=== PATIENT | female | born 2000 | race Caucasian/White ===

== ENCOUNTER → 2022-01-30 | Outpatient (CLI) | payer OTHER, SELFPAY ==
--- NOTE | 2022-01-30 12:19 | US_ITS ---
STUDY: ULTRASOUND BREAST - RIGHT REASON FOR EXAM: Female, 21 years old. Bilateral palpable breast lump. TECHNIQUE: Axial and longitudinal images of the RIGHT breast were performed with a high resolution ultrasound transducer. # OF IMAGES: 28 COMPARISON: None. FINDINGS: RIGHT Breast: There is a 2.3 cm x 2.1 cm x 1.4 cm well-defined hypoechoic solid nodule at the 4 o''clock position of the breast at 2 cm from the nipple. Increased flow is seen. This most likely represents a fibroadenoma although tissue diagnosis is recommended. IMPRESSION: The palpable abnormality corresponds to a 2.3 cm x 2.1 cm x 1.4 cm well-defined hypoechoic nodule at the 4 o''clock position of the breast at 2 cm from nipple. Biopsy recommended. ASSESSMENT CATEGORY: BIRADS Category 4: Suspicious - Biopsy Should Be Considered. A letter regarding these results will be sent to the patient by the facility within 30 days. Electronically Signed: Manish Kay MD at 15:04 EST Reading Location ID and State: [address] [place] [address] , Service support , STUDY: ULTRASOUND BREAST - LEFT REASON FOR EXAM: Female, 21 years old. Palpable lump left breast. TECHNIQUE: Axial and longitudinal images of the LEFT breast were performed with a high resolution ultrasound transducer. # OF IMAGES: 28 COMPARISON: None. FINDINGS: LEFT Breast: The palpable lump corresponds to a 2.1 cm x 2.1 cm x 1.1 cm well-defined hypoechoic nodule at the 4 o''clock position of the breast at 1 cm from the nipple. Adjacent to this, a similar appearing nodule measuring 1 cm x 0.8 x 0.8 cm is seen. Biopsy recommended. US/Breast Limited Unilateral IMPRESSION: 2 adjacent well-defined hypoechoic solid nodules at the 4 o''clock position of the breast at 1 cm from nipple. Biopsy is recommended. ASSESSMENT CATEGORY: BIRADS Category 4: Suspicious - Biopsy Should Be Considered. A letter regarding these results will be sent to the patient by the facility within 30 days. Electronically Signed: Manish Kay MD at 15:05 EST ,
== END | disposition home or self-care (01) ==
LOC: OPUS 12:15
PROVIDERS: PCP Physician Assistant
DX: N63.0 Unspecified lump in unspecified breast (principal)
CPT/HCPCS: 76642

== ENCOUNTER → 2022-02-07 | Outpatient (CLI) | payer OTHER, SELFPAY ==
--- NOTE | 2022-02-07 10:15 | BRBX_PTH ---
PATIENT: BRIAN REID LOC: [facility] U#:[id number] AGE/SX: 21/F ROOM: RE02/07/[address]: Dr. Cinthia Ruiz MD : 2000 BED: DIS: 02/07/2022 SPEC #: [id number] RECD: 02/07/22 11:08 STATUS: BRANDEN REReanna #: [id number] DEVONTE: 02/07/22 10:[address]: Cinthia Ruiz DEPT: SURGICAL PATHOLOGY RECD BY: Rosalinda Ferrara ENTERED: 02/07/22 11:35 SP TYPE: BREAST BX OTHR DR: BARB Timmons Tissues: A - Right breast, NOS B - Left breast, NOS Procedures: Surgery Specimen Level IV HEADER OPERATION: Needle core biopsy left and right breast lumps PRE-OP DIAGNOSIS: Likely fibroadenoma TISSUE SUBMITTED: A ? Right breast 4 o?clock, 2 cm from nipple tissue, B ? Left breast 4 o?clock, 1 cm from nipple tissue MICROSCOPIC DIAGNOSIS A. Right breast, 4 o?clock, 2 cm from nipple, core biopsy: Fibroadenoma. Negative for atypia or malignancy. B. Left breast, 4 o?clock, 1 cm from nipple, core biopsy: Fibroadenoma. Negative for atypia or malignancy. AROLDO:sher 02/08/2022 MICROSCOPIC DESCRIPTION Slides are reviewed. GROSS DESCRIPTION A - Received in fixative is one container labeled with the patient's name and designated right breast 4 o?clock, 2 cm from nipple tissue. The specimen consists of multiple elongated fragments of arreola-yellow fibroadipose tissue that in aggregate measure 1 x 0.5 x 0.1 cm. The entire specimen is submitted in one cassette. B - Received in fixative is one container labeled with the patient's name and designated left breast 4 o?clock, 1 cm from nipple tissue. The specimen consists of multiple elongated fragments of arreola-yellow fibroadipose tissue that in aggregate measure 1 x 0.5 x 0.1 cm. The entire specimen is submitted in one cassette. / AROLDO:sher 02/07/2022 TC:1 CPT: 58411 x2
== END | disposition home or self-care (01) ==
PROVIDERS: PCP Physician Assistant; Referring Provider Surgery; Visit Provider Surgery
DX: D24.1 Benign neoplasm of right breast (principal); D24.2 Benign neoplasm of left breast
CPT/HCPCS: 88305

== ENCOUNTER 2024-03-27 08:48 | Day surgery (SDC) | payer OTHER, SELFPAY ==
[2024-03-27] VITALS (9 sets, daily range): BP systolic 103–119; BP diastolic 58–82; PULSE 60–86; RESP 16; TEMP 36.3–36.4; O2SAT 94–100; BMI 21.6
[2024-03-27] MEDS: 0.9% Normal Saline (1000mL) 1,000 ML 15 ML IV (09:28)
[2024-03-27 09:39] LABS: Internal QC Validated? YES +Cl - CLEAR BKGD; Pregnancy, Urine Negative Negative; Record Kit Lot#,Urine Preg 855059
--- NOTE | 2024-03-27 10:05 | HP.PCM_ITS ---
History and Physical Date of Admission: 03/27/24 Date of Service: 03/17/24 MR#: [id number] Acct: [id number] Name: BRIAN REID Rep #: [id number] : 2000 Provider: Dr. Cinthia Ruiz MD Age/Sex: 23/F Location: [facility] Status: Signed Intake Vital Signs 01/08/2317:25 03/17/2510:19 Height 5 ft 6 in 5 ft 6 in Weight: 134 lb 4 oz BMI 21.7 BP 125/80 H Blood Pressure Location Lt brachial Position Sitting Respiration 18 Pulse 68 Pulse Source Monitor Temp 97.2 F L Temp Source Temporal Pulse Oximetry (%) 98 Oxygen Delivery Method room air Intake Visit Reasons: EXCISION OF R BREAST MASS Chief Complaint: excision of r breast mass Accompanied by: Mother Is patient in pain?: No Allergies sulfamethoxazole (From Bactrim) Allergy (Verified 03/17/24 11:22) Hivestrimethoprim (From Bactrim) Allergy (Verified 03/17/24 11:22) Hives Medications ?Medication ?Instructions ?Recorded ?Confirmed ?Type NK 03/17/24 03/17/24 History PFSH Medical History (Updated 03/17/24 @ 11:[address] Cinthia Ruiz MD) Lump of right breast Acute streptococcal pharyngitis Acute pharyngitis, unspecified Acute frontal sinusitis, unspecified Surgical History S/P laparoscopic cholecystectomy Family History Grandfather Diabetes Heart disease Hypertension Cancer skin Kidney diseaseGrandmother Heart diseaseMother CAD (coronary artery disease)Aunt Cancer uterine Social History (Updated 03/17/24 @ 11:18 by Ann Marie Jarrett LPN) Smoking Status: Never smoker alcohol intake: never substance use type: does not use HPI HPI HPI: 23-year-old female presents due to enlarging right breast fibroadenoma. Patient had this biopsied in January 2022 along with the left breast which was both fibroadenomas. However the right breast has grown in size about 3x the size previous. Patient states about the size of a golf ball. This can cause discomfort if her breast from work is pressing on this area. ROS General General: No weight change, appetite, fatigue, colon cancer, breast cancer or weakness HEENT HEENT: No difficulty swallowing, eye injury, eye surgery, swollen glands or hoarseness Endo Endocrine: No thyroid disease, diabetes mellitus, thyroid cancer, Hair loss, heat intolerance or cold intolerance Skin Skin: No rash or changing moles Breast Breast: Yes right breast lump; No left breast lump, nipple discharge, breast pain, abnormal mammogram, abnormal US or breast enlargement Musc Musculoskeletal: No back problems, arthritis, rheumatoid arthritis, gout or joint pain Cardio Cardiovascular: No murmur, pacemaker, heart disease, atrial fibrillation, high blood pressure, heart attack, heart stent, palpitations, shortness of breat with exertion or chest pain Psych Psychiatric: No depression, anxiety or hearing voices Resp Respiratory: No shortness of breath, No sleep apnea, No cough, No COPD, No asthma, No emphysema and No wheezing Gastro Gastrointestinal: No abdominal pain, No nausea or vomiting, No diarrhea, No constipation, No blood in stool, No acid reflux, No hemorrhoids, No ulcers, No gallbladder problem and No black,tarry stools Albert Hematologic: No blood thinners, No blood disorders, No bleeding, No anemia and No blood clots Neuro Neurologic: No numbness, No tingling and No weakness Exam Const General: cooperative, healthy appearing and no acute distress [facility] Head: normal to inspection Chest Other: Breast inspection: Symmetric bilaterally, can faintly see right breast enlarging mass at 4:00 when laying down Right breast: Fibroglandular tissue, 8 cm x 7 cm mass at 4:00 previously biopsied and was a fibroadenoma question whether this is a phyllodes with the growth, no nipple discharge or pain, no change in overlying skin Left breast: Fibroglandular tissue, 2 x 2.5 cm mass at 4:00 2 cm previously biopsied as well?fibroadenoma, no nipple discharge or pain, no change in overlying skin No axillary or supraclavicular adenopathy bilaterally Resp Effort & Inspection: normal respiratory effort Cardio Rate: regular rate GI Inspection: non-distended Palpation: soft Skin General: no rashes or lesions noted Neuro General: patient oriented x3 Extrem General: no clubbing, cyanosis or edema Psych Affect: normal affect Assessment and Plan Assessment and Plan (1) Lump of right breast: Status: Acute Comment: Biopsy in 2021 fibroadenoma but has grown in size Plan Plan for excisional breast biopsy of the right breast at 4:00. Discussed risk including but not limited to bleeding, infection, and need for further surgery and anesthesia. Patient no further question this time. Cinthia Ruiz M.D. Pager: [phone] [facility] [address] [place] [address], [facility], [address] [place] [id number] Office: [phone] Coding Level of Care Code Off vis,est,level 3 Diagnoses Lump of right breast N63.10 03/17/24 1142 <Electronically signed by Cinthia Ruiz MD> Date Cinthia Ruiz MD
--- NOTE | 2024-03-27 10:26 | PRE.ANES_ITS ---
ASA Classification* ASA Classification ASA Classification: 1 Assessment & Plan Anesthesia* Anesthesia Assessment Anesthesia Assessment: Discussed sedation and/or anesthesia options, risks, benefits, and alternatives with patient/parents/legal guardian/POA. Questions invited. The patient/parents/legal guardian/POA seems to understand and agrees to proceed with anesthesia plan. Reviewed the physical assessment, medical history, allergy history and patient home medications list prior to surgery/procedure/anesthetic and documented any changes. Performed airway and anesthesia risk assessments. Anesthesia Type Anesthesia Type: General History Source History Obtained from:: Patient and Chart Anesthesia Focused Assessment* Temperature: 97.6 F Pulse Rate: 77 Blood Pressure: 103/70 Respiratory Rate: 16 Pulse Ox: 100 Oxygen Delivery Method: Room Air Airway Assessment Mouth opens: >3 cm Mallampati Score: I Teeth Condition: Intact Neck Range of motion (ROM): Full ROM Focused Labs Anesthesia Preop lab: CBC CHEMISTRY COAG Urine Test Negative Negative 03/27/24 09:20 03/27/24 Pre-Assessment Diagnosis/Proposed Procedure Planned Operative Procedure(s): EXCISION RIGHT FIBROADENOMA Anesthesia History Anesthesia History - box shook patcher: Anesthesia History - box shook patcher Hx Hospitalization No 03/19/24 11:00 Any Problems With Anesthesia No 03/19/24 11:00 Cholinesterase deficiency No 03/19/24 11:00 You/Your Family Experience No 03/19/24 11:00 fever (hyperthermia) with Relationship Recent Exposure to Contagious No 03/27/24 09:13 Disease Does patient have nerve No 03/19/24 11:00 stimulator Patient instructed to have device shut off --Does patient have Pacemaker No 03/27/24 09:16 or ICD? When Was Last Pacemaker Check QUESTION #4 FULL TEXT: You/Your Family Experience fever (hyperthermia) with Anesthesia Last Oral Intake Last Oral intake: Last Oral Intake NPO since 19:30 03/27/24 09:16 Meds taken in AM with sips of No 03/27/24 09:16 water? Meds patient instructed to take am of surgery PONV PONV - box shook patcher: PONV - box shook patcher Female Yes 03/19/24 11:00 HX of Motion Sickness No 03/19/24 11:00 HX of N/V After Surgery No 03/19/24 11:00 Non-Smoker Yes 03/19/24 11:00 Duration of Surgery greater No 03/19/24 11:00 than 60 minutes Number of Risk Factors 2 03/19/24 11:00 PONV Score Moderate Risk 03/19/24 11:00 Height & Weight Height & Weight: Anesthesia: Height & Weight Height 5 ft 6 in 03/27/24 09:16 Weight: 60.781 kg 03/27/24 09:16 Body Mass Index (BMI) 21.6 03/27/24 09:16 Respiratory Assessment Respiratory Assessment - box shook patcher: Respiratory Tract Infection Hx - box shook patcher Hx Respiratory Tract Infection No 03/19/24 11:00 STOP Sleep Apnea STOP Sleep Apnea - box shook patcher: STOP Sleep Apnea - box shook patcher Hx Hypertension No 03/19/24 11:00 Hx Sleep Apnea No 03/19/24 11:00 CPAP BIPAP Do you snore loudly (louder No 03/19/24 11:00 than talking or can be heard Do you often feel tired/ No 03/19/24 11:00 fatigued/ sleepy during daytime? Has anyone observed you stop No 03/19/24 11:00 breathing during sleep? STOP Results Negative 03/19/24 11:00 QUESTION #5 FULL TEXT : Do you snore loudly (louder than talking or can be heard through closed doors)? 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 Specify any problems Hx of Preganancy in last 3 No 03/19/24 11:00 Months Nurse Filling Out Transfusion DSCHRIBER 03/19/24 11:00 & Questions: Date: 03/19/24 03/19/24 11:00 Time: 11:03/19/24 11:00 Patient unable to answer at this time (ie. confused, unrespo /Reproduction History /Reproductive History - box shook patcher: /Reproductive Hx- box shook patcher Hx Now No 03/19/24 11:00 Gestational Age (in weeks): EDC: Hx Hx Para Hx Section SAB No 03/19/24 11:00 Active Medications Active Medications: Current Medications Generic Name Dose Route Start Last Admin Trade Name Freq PRN Reason Stop Dose Admin Cefazolin Sodium 2 gm/ N/A 20 mls @ 400 mls/hr 03/27/24 10:30 IV 03/27/24 10:32 PREOP ONE Sodium Chloride 1,000 mls @ 15 mls/hr 03/27/24 09:05 03/27/24 09:28 IV 04/01/24 22:24 15 mls/hr .Q48H TIAN Administration Protocol [facility] Medical History Alcohol use Non-smoker Lump of right breast Acute streptococcal pharyngitis Acute pharyngitis, unspecified Acute frontal sinusitis, unspecified Home Medications ?Medication ?Instructions ?Recorded ?Last Taken ?Type NK 03/17/24 Unknown History Allergy/AdvReac Type Severity Reaction Status Date / Time sulfamethoxazole (From Allergy Hives Verified 03/27/24 09:11 Bactrim) trimethoprim (From Bactrim) Allergy Hives Verified 03/27/24 09:11 Family History Grandfather Diabetes Heart disease Hypertension Cancer skin Kidney disease Grandmother Heart disease Mother CAD (coronary artery disease) Aunt Cancer uterine Surgical History Hx of wisdom tooth extraction S/P laparoscopic cholecystectomy Social History Smoking Status: Never smoker alcohol intake: never substance use type: does not use Review of Systems (Anesthesia) ROS Narrative System reviewed and no additional complaints, except as documented.
--- NOTE | 2024-03-27 10:30 | BRBX_PTH ---
PATIENT: BRIAN REID LOC: [facility] U#:[id number] AGE/SX: 23/F ROOM: RE03/27/[address]: Dr. Cinthia Ruiz MD : 2000 BED: DIS: 03/27/2024 SPEC #: [id number] RECD: 03/27/24 11:45 STATUS: BRANDEN REReanna #: [id number] DEVONTE: 03/27/24 10:[address]: Cinthia Ruiz DEPT: SURGICAL PATHOLOGY RECD BY: Rosalinda Ferrara ENTERED: 03/27/24 11:52 SP TYPE: BREAST BX OTHR DR: BARB Timmons Tissues: Right breast, NOS Procedures: Surgery Specimen Level IV HEADER OPERATION: Excision, right fibroadenoma breast PRE-OP DIAGNOSIS: Lump of right breast TISSUE SUBMITTED: Fibroadenoma right breast *short tag- anterior, long tag- medial* MICROSCOPIC DIAGNOSIS Right breast lesion, excisional biopsy: Juvenile fibroadenoma of breast. See comment. 04/07/2024 COMMENT The lesion appears to be completely excised. The specimen is sent to [facility] for expert opinion, reviewed by Dr. Michaud and the above diagnosis is rendered. The complete report is viewable in the patient's EMR. Please make reference to previous specimen [id number] right breast, 4oc'clock, 2cm from nipple, core biopsy with diagnosis of fibroadenoma and left breast, 4o'clock, 1cm from nipple, core biopsy with diagnosis of fibroadenoma. Clinical correlation and appropriate follow up are necessary. This case has been reviewed in consultation with Dr. Bautista who concurs with the above diagnosis. IDC:PW MICROSCOPIC DESCRIPTION Slides are reviewed. GROSS DESCRIPTION Received in fixative is one container labeled with the patient's name and designated Fibroadenoma right breast. The specimen consists of a arreola nodular piece of tissue without needle localization weighing 49gm and measuring 6 x 5 x 4.5cm. The specimen is oriented as follows: short- anterior, long -medial. The specimen is inked as follows: anterior - yellow, posterior - black, superior - blue, inferior - green, medial - red and lateral - orange. Sections reveal that entire specimen is replaced by a arreola solid nodule. Area of hemorrhage, necrosis or cystic degeneration are not identified. Cartographic Designer sections are submitted in eight cassettes as follows: 1- perpendicular medial and lateral margins, 2-8- tumor, nodular mass including other margins. 03/28/2024 TC:1 CPT:45755
[2024-03-27] MEDS: Cefazolin 2 GM in Syringe IV (11:00)
--- NOTE | 2024-03-27 11:05 | BI_ITS ---
EXAM: BREAST BIOPSY SPECIMEN CLINICAL HISTORY: Breast mass. COMPARISON: None. TECHNIQUE: Imaging of the specimen was obtained. FINDINGS: The specimen contains the mass. BI/Breast Biopsy Specimen IMPRESSION: The specimen contains the mass. Reading Location: [place] [address]
[2024-03-27] MEDS: Bupivacaine 0.25% 30 ML Vial (11:33)
--- NOTE | 2024-03-27 11:41 | OP.PCM_ITS ---
Operative Report (Standard) Operative Information Date of Procedure: 03/27/24 Pre-Operative Diagnosis: Right breast fibroadenoma Post-Operative Diagnosis: Same Surgery/Procedure Performed: Excisional right breast fibroadenoma marketing support coordinator: Yes Ux Information Architect: Magali Ramirez Tasks completed by payroll assistant: Opening & closing and Retracting Type of Anesthesia: General/Supplemental RN Documented Start/Stop Times: Operation Date: 03/27/24 10:30 Case Time Into Pre-Op 03/27/24 09:02 Out of Pre-Op 03/27/24 10:50 Anesthesia Start 03/27/24 10:52 Into Room 03/27/24 10:52 Procedure Start 03/27/24 11:05 Procedure End 03/27/24 11:47 Anesthesia End 03/27/24 11:56 Out of Room 03/27/24 11:56 Into Recovery 03/27/24 12:00 Into Phase II Recovery 03/27/24 12:37 Out of Recovery 03/27/24 12:37 Procedure Start Time: 11:05 Procedure Stop Time: 11:47 Select all DRAINS/GRAFTS/IMPLANTS that apply: None Special Medications: Ancef 2 g IV x 1 Estimated Blood Loss: < 10 CC Specimen collected: Yes Description of specimen(s) removed: Right breast mass?previous biopsy fibroadenoma Description of surgery: Indications?23-year-old female previous right breast biopsy for fibroadenoma however this has enlarged in size about 3 times the previous size since previous biopsy. Patient was brought to operating placed spine operating table. Timeout was completed verifying correct patient, procedure, site, positioning, special, prior began procedure. General anesthesia was induced. Patient's right breast was prepped draped in a sterile fashion. A areolar border incision was planned in such a way as to minimize the amount of dissection to reach the mass. Flaps were raised in the location of the mass. 2 silk [id number] stay suture was placed on the breast mass and used for traction. Dissection was then taken down circumferentially with electrocautery, taking care to include the entire breast mass. The specimen was removed. The specimen was oriented and sent to radiology. Confirmation was received that the entire target lesion had been resected along with previously placed clip. The cavity was irrigated. Hemostasis was obtained with electrocautery. The breast incision was closed with interrupted sutures of 3-0 Vicryl and subcuticular sutures of 4-0 Monocryl and Dermabond. No attempt was made to close the space. A dressing of fluff gauze and supportive bra placed. The patient tolerated procedure well was taken to the postanesthesia care in stable condition. Surgical Findings: Please see operative report Complications Complications: No
--- NOTE | 2024-03-27 11:45 | EX.PCM.DISCH ---
Discharge Instructions Diet Discharge Diet: No restrictions Activity Discharge Activity: May Not Drive (while taking narcotic pain meds.) and May Shower (In 24 hours) May shower in (days): 1 Lifting Restrictions: 20 pounds for 1 week on the right. Additional Activity Instructions:: Wear good compression bra even at night for the first couple nights Dressing / Incision Call your doctor if your incision/area has: Continuous Slow Oozing, Sudden Increased Bleeding, Increased Pain/ Swelling and Increased Redness Call your doctor if you observe: Fever of 101 or Higher Suture Line Care: Avoid Pulling/Pushing and Avoid Pinching/Bending Remove Dressing in: 1 day Additional Dressing/Incision Instructions:: Remove bulky dressing tomorrow. Dermabond (glue) was used at the incision this may start to peel off in about 5 days. Follow Up Care Please Follow Up With: Cinthia Ruiz MD When: Please call [phone] for an appointment to be seen in 2 week. Test Results: Test results from this visit will be discussed in further detail at your follow-up appointment, if applicable. Discharge Plan Admission Attending Provider: Cinthia Ruiz Primary Care Provider: Kristin Nguyen Instructions Print Language: Turkish Discharge Orders/Prescriptions Prescriptions: New tramadol 50 mg tablet 50 mg PO Q6H PRN (Reason: pain) Qty: 3 0RF Referrals / Follow Up: Kristin Nguyen PA [Primary Care Provider] - Disposition Disposition (needs filled in before D/C Order can be placed): Home, Self Care
--- NOTE | 2024-03-27 12:02 | PCM.POST.ANE ---
Anesthesia: Postop Eval I Current Vital Signs Temperature: 97.3 F Pulse Rate: 86 Blood Pressure: 113/82 Respiratory Rate: 16 Pulse Ox: 100 Oxygen Delivery Method: Room Air Assessment Airway patent: Yes Spontaneous unlabored respirations: Yes Mental status: Awake and Calm nausea: No Vomiting: No Anesthesia Complication: No Fluid Hydration Crystalloid volume administer (ml): 700 Total IV fluid infused: 700 Progress Note Anesthesia document: Postop Eval 1 completed: Yes
[2024-03-27] MEDS: Ketorolac 30 MG/ML Syringe IV (12:32)
--- NOTE | 2024-03-27 13:45 | POSTOPAN2_ITS ---
Anesthesia Postop Eval I Sum Postop Eval Completion status Anesthesia document: Postop Eval 1 completed: Yes Anesthesia Postop Eval I Summary Anesthesia Postop Eval I Summary: Anesthesia Postop Eval I: Assessment Summary Airway patent Yes 03/27/24 12:02 COATER OPERATOR.SKOBY Spontaneous unlabored Yes 03/27/24 12:02 COATER OPERATOR.IAN respirations Mental status Awake,Calm 03/27/24 12:02 COATER OPERATOR.SKOBY nausea No 03/27/24 12:02 COATER OPERATOR.SKOBY Vomiting No 03/27/24 12:02 COATER OPERATOR.MALIKAOBHector Anesthesia Postop Eval I: Fluid Summary Crystalloid volume administer 700 03/27/24 12:02 COATER OPERATOR.SKOBY (ml) Colloids volume administered ( ml) Blood Product volume administered (ml) Total IV fluid infused 700 03/27/24 12:02 COATER OPERATOR.MALIKAOBHector Anesthesia Postop Eval I: Summary Notes Anesthesia Complication No 03/27/24 12:02 COATER OPERATOR.IAN Anesthesia Complication Comment: Post-operative progress note Anesthesia: Postop Eval II Evaluation Mental status: Awake and Calm Pain Level: 0 nausea: No Vomiting: No Complications Anesthesia Complication: No
--- NOTE | 2024-03-27 13:45 | PCM.POSTANE2 ---
Anesthesia Postop Eval I Sum Postop Eval Completion status Anesthesia document: Postop Eval 1 completed: Yes Anesthesia Postop Eval I Summary Anesthesia Postop Eval I Summary: Anesthesia Postop Eval I: Assessment Summary Airway patent Yes 03/27/24 12:02 [email or web address] Spontaneous unlabored Yes 03/27/24 12:02 [email or web address] respirations Mental status Awake,Calm 03/27/24 12:02 [email or web address] nausea No 03/27/24 12:02 [email or web address] Vomiting No 03/27/24 12:02 [employer].[email or web address] Anesthesia Postop Eval I: Fluid Summary Crystalloid volume administer 700 03/27/24 12:02 [email or web address] (ml) Colloids volume administered ( ml) Blood Product volume administered (ml) Total IV fluid infused 700 03/27/24 12:02 [employer].[email or web address] Anesthesia Postop Eval I: Summary Notes Anesthesia Complication No 03/27/24 12:02 [email or web address]IAN Anesthesia Complication Comment: Post-operative progress note Anesthesia: Postop Eval II Evaluation Mental status: Awake and Calm Pain Level: 0 nausea: No Vomiting: No Complications Anesthesia Complication: No
== END 2024-03-27 13:26 | disposition home or self-care (01) ==
LOC: SDC 08:51 → AC 08:53
PROVIDERS: Anesthesiology; PCP Physician Assistant; Referring Provider Surgery; Visit Provider Surgery
PROC: (CPT 19120; principal; 2024-03-27 10:15)
DX: D24.1 Benign neoplasm of right breast (principal)
CPT/HCPCS: 19120; 00400; 76098; 81025; 88305; A4648; J2405

== ENCOUNTER → 2024-08-27 | Outpatient (CLI) | payer OTHER, SELFPAY ==
--- NOTE | 2024-08-27 12:23 | RAD_ITS ---
PROCEDURE: L/S SPINE MIN 4 VIEWS 08/27/2024 REASON FOR EXAM: LOW BACK PAIN W/RADICULOPATHY TECHNIQUE: Four view lumbar spine series including bilateral oblique views COMPARISON: None. RAD/L/S Spine Min 4 Views IMPRESSION: Surgical clips are seen over the medial right abdomen. No evidence of spondylolysis or spondylolisthesis. Sacroiliac joints appear symmetric and within the normal range. No significant degenerative change or disc narrowing is noted. No fracture is seen. Negative examination. Reading Location: [place] [id number]
== END | disposition home or self-care (01) ==
LOC: RAD 12:17
PROVIDERS: PCP Physician Assistant; Referring Provider Physician Assistant; Visit Provider Physician Assistant
DX: M54.50 Low back pain, unspecified (principal)
CPT/HCPCS: 72110

== ENCOUNTER → 2024-09-16 | Outpatient (CLI) | payer OTHER, SELFPAY ==
--- NOTE | 2024-09-16 11:16 | MRI_ITS ---
PROCEDURE: SPINE LUMBAR (ROUTINE) 09/16/2024 REASON FOR EXAM: BACK PAIN RADICULOPATHY TECHNIQUE: SPINE LUMBAR (ROUTINE) COMPARISON: Lumbar spine radiographs 08/27/2024. FINDINGS: 5 [id number] lumbar-type vertebrae are preserved in height, with anatomic alignment. Straightening of the lumbar lordosis is likely positional in nature. Normal marrow signal. Small left paracentral disc extrusion at L5-S1, indenting the ventral thecal sac, with no significant spinal canal narrowing. Extrusion is in close proximity to the exiting left S1 nerve with no evidence of impingement. No significant neural foraminal narrowing on either side. No disc bulge, spinal canal or neural foraminal narrowing at the remaining levels. Conus medullaris is normal in signal and morphology, terminating at L1. Normal appearance of the cauda equina. Unremarkable paravertebral soft tissues. MRI/Spine Lumbar (Routine) IMPRESSION: Small left paracentral disc extrusion at L5-S1, with no significant spinal leonel l or neural foraminal narrowing. No evidence for cauda equina nerve root impingement. Reading Location: [id number]
== END | disposition home or self-care (01) ==
LOC: MRI 10:59
PROVIDERS: PCP Physician Assistant; Referring Provider Physician Assistant; Visit Provider Physician Assistant
DX: M51.27 Other intervertebral disc displacement, lumbosacral region (principal)
CPT/HCPCS: 72148

== ENCOUNTER 2024-10-03 09:00 | Outpatient (RCR) | payer OTHER, SELFPAY ==
--- NOTE | 2024-09-08 15:33 | HP.PTEVAL ---
Patient's Visit Information Visit Information Visit Information: BRIAN REID is a 23 year old F referred to Physical Therapy by BARB Timmons with a diagnosis of L sided lumbar radiculopathy. 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 Subjective Subjective: Pt. is here today for her initial evaluation with diagnosis of lumbar radiculopathy. Pt. reports having issues on and off for a few years. Pt. reports she will bend over or lift something and have an intense episode where she can barely stand up. This will last a few days then go away. Pt. reports she feels like it is happening more consistent. Pt. reports pain can go down both legs at times. pt. reports mornings are painful, better as she gets moving. sitting is worse than standing and walking. Pt. has tried some stretching but has not been helpful. 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 Pt. would like to get back to all work and recreational lifting without issues. Pain L side of lumbar spine: Pain Intensity (Out of 10): 2 Pain Intensity Range: 0 and 7 Objective Objective: POSTURE: Pt. has decent posture in stance. No marked lateral shift noted. PALPATION: Pt. has increased pain with spring testing at L4-S1. No marked SI joint pain. NEURO: normal sensation and DTR of BLEs. Pt. is able to rise on heels and toes without issues. ROM: LUMBAR SPINE: flexion min loss increase NW upon return, ext min/mod loss increase NW, SB nil loss NE bilat, rotation nil loss NE bilat. Pt. has normal HS length bilat. Pt. has normal hip flexor length bilat. MMT: Pt. has 5/5 strength in distal LEs. 5-/5 hip extensors and abductors bilat. Fair- core strength, fair- lumbar extensors. GAIT: normal without issues. Balance/Special Test Scores Oswestry Low Back Score: 13 Goals Goal 1:: LTG: Pt. to be I with HEP. Goal Time Frame: 4-6 Weeks Goal 2:: STG: Pt. to have full ROM lumbar spine without increase in symptoms. Goal Time Frame: 2-4 Weeks Goal 3:: STG: Pt. to no radicular symptoms in LLE. Goal Time Frame: 2 Weeks Goal 4:: LTG: Pt. to complete all work related activities without increase in symptoms. Goal Time Frame: 4-6 Weeks Goal 5:: LTG: pt. to have 5/5 B hip and core strength. Goal Time Frame: 4-6 Weeks Rehabilitation Potential Physical Therapy Diagnosis: Pt. has signs and symptoms consistent with L sided lumbar radiculopathy. Pt. has marked pain in AMs, with sitting and with all bending/lifting. She did have a + response with extension progression today. Mild increase in symptoms but centralization of symptoms as well. Pt. would benefit from PT to work on her lumbar ROM and core stability to reduce future injuries. Rehabilitation Potential: Excellent Anticipated Interventions Patient/Client Instruction: Educate patient on: Condition, Plan of Care, Risk Factors and Benefits of Fitness Program For the Purpose of:: To improve decision making, To facilitate caregiver knowledge, To improve self management, To prevent re-injury and To improve ability to perform tasks related to life management Therapeutic Exercise to Include: Strength training, Power training, Passive ROM, Active ROM, Dynamic Lumbar Stabilization and Leonard Exercises For the Purpose of:: To decrease pain, To increase ROM, To improve nutrient delivery to tissue, To increase oxygenation perfusion, To improve muscle performance and motor function, To improve ability to perform ADL's, To improve gait and locomotor functions, To improve health of tissue and To decrease soft tissue restriction IF ES: Yes Cryotherapy (ice pack, ice massage): Yes For the Purpose of:: To decrease pain, To increase ROM, To improve nutrient delivery to tissue, To increase oxygenation perfusion, To improve health of tissue, To decrease soft tissue restriction and To increase flexibility/ROM Text: Thank you for the opportunity to evaluate your patient. For Medicare and Medicare HMO plans, please review the plan of care and approve it. It will need to be FAXED BACK to us at [phone] for Medicare purposes. For Medicare only, by signing this I certify the plan of care. Please let me know if there are questions or concerns regarding this plan of care. Physician Signature: Date:
--- NOTE | 2024-10-03 09:29 | HP.PTDCSUM ---
Discharge Summary D/C summary: It has been my pleasure to treat BRIAN REID referred by BARB Timmons, with the diagnosis of L sided lumbar radiculopathy for a total of 5 visit(s). Discharge Date: 10/03/24 Please see the following information for a summary of their discharge status. Subjective Subjective: Pt. reports being ~50% better. She has not had a spasm since starting. Pt. did have an MRI, showing a small disc extrusion. Pt. reports having some L anterior leg pain. Pt. reports no leg weakness. Pain L side of lumbar spine: Pain Intensity (Out of 10): 2 Overall Improvement % Improvement: 50 Objective Objective/Function: ROM: LUMBAR SPINE flexion nil loss NE, ext min loss increase NW, SB min loss NE, rotation min loss NE. Pt. has slight tightness in B HS as well. MMT: No myotomal weakness noted. GAIT: Pt. has fairly normal gait pattern. Pt. does not have a marked lateral shift, posture is overall pretty good. Pt. does reports overall doing better, but still has a underlying pain that never really goes away. Goals Goal 1:: LTG: Pt. to be I with HEP. Goal Progress: Goal Met Goal 2:: STG: Pt. to have full ROM lumbar spine without increase in symptoms. Goal Progress: Progressing Goal 3:: STG: Pt. to no radicular symptoms in LLE. Goal Progress: Progressing Goal 4:: LTG: Pt. to complete all work related activities without increase in symptoms. Goal Progress: Progressing Goal 5:: LTG: pt. to have 5/5 B hip and core strength. Goal Progress: Goal Met Plan Plan: Pt. is overall doing better. She has a good idea of her exercises. She is going to go on vacation and do her exercises. If not improving she will look at possibly seeing a spinal specialist. D/C Information d/c sentence: If there are questions or concerns regarding this patient's physical therapy, please feel free to call me at [phone]. Thank you for the referral of this patient. Sincerely, Demario Ryder Sipos, DPT Balance/Gait/Functional tests Balance/Special Test Scores Oswestry Low Back Score: 9 Improvement % Improvement: 50
== END 2024-10-03 10:13 | disposition home or self-care (01) ==
LOC: PT 09:00
PROVIDERS: PCP Physician Assistant; Referring Provider Physician Assistant; Visit Provider Physician Assistant
DX: M54.50 Low back pain, unspecified (principal)
CPT/HCPCS: 97014; 97110; 97161; 97530; G0283

== ENCOUNTER → 2025-01-18 | Outpatient (CLI) | payer OTHER, SELFPAY ==
--- OUTSIDE RECORDS SUMMARY | 2025-01-19 14:57 | XMS RPT_ITS | CCD ---
Author Organization [facility] Care Team Providers Care Operations General Agent Name Role Phone BELÉN TUCKER Unavailable Unavailable KRISTIN NGUYEN Unavailable Unavailable ALLEN, JIMMY A Unavailable Unavailable BELÉN TUCKER Unavailable Unavailable BELÉN TUCKER Unavailable Unavailable ALLEN, JIMMY A Unavailable Unavailable NIKKI SANTIAGO Unavailable Unavailable ALLEN, JIMMY A Unavailable Unavailable YONY HOOK Unavailable Unavailable ALLEN, JIMMY A Unavailable Unavailable YONY HOOK Unavailable Unavailable YONY HOOK L Unavailable Unavailable BELÉN TUCKER Unavailable Unavailable ALLEN JIMMY A Unavailable Unavailable ALLEN, JIMMY A Unavailable Unavailable ALEXIA CHANDRA Unavailable Unavailable ALLEN, JIMMY A Unavailable Unavailable ALLEN, JIMMY A Unavailable Unavailable ALTON CHANDRAAHAM D Unavailable Unavailable ALTON CHANDRAAHAM D Unavailable Unavailable ALLEN, JIMMY A Unavailable Unavailable BARB Vera Primary Care Provider [phone] BARB [address] Cinthia Ruiz Attending Provider SILVIA FULTON PAC Attending Unavailable SILVIA FULTON PAC Primary Care Unavailable SILVIA FULTON PAC Admitting Unavailable KRISTIN NGUYEN Consulting Unavailable PROVIDER, UNKNOWN Consulting Unavailable Elisa Nguyen PA-Cissa J Unavailable Kristin Nguyen PA-C J Unavailable [facility], [place] Unavailable General Surgery Provider Unavailable Unavail able Sarahi Moreau LPN Unavailable Silvia Fulton PA-C Unavailable Jl Steele MD Unavailable Johana Gibbs LPN Unavailable Unavailable Trinh Rojas MA Unavailable Unavailable Jimmy Allen MD Unavailable Branden SHELBY, Aye Unavailable Unavailable Ariel DEPENDENCY CASE MANAGER, Shanita Unavailable Unavailable Andressa DEPENDENCY CASE MANAGER, Claudette Bruce Unavailable Unavailab shan Cornejo DEPENDENCY CASE MANAGER, Danii Burr Unavailable Unavailab shan Ulloa MA, Shanita Unavailable Unavailable Diana DEPENDENCY CASE MANAGER, Esmer Unavailable Unavailabl e Zaugg DEPENDENCY CASE MANAGER, Diana Unavailable Unavailable Unavailable Unavailable Val Gandhi Unavailable Unavailabl e Physical Therapy Provider Unavailable Unavai lable Nguyen PA, Kristin Primary Care Provider Nguyen PA, Kristin Attending Provider Nguyen PA, Kristin Referring Provider [phone] Robotham, Cinthia Attending Unavailable Robotham, Cinthia Referring Unavailable Nguyen PA, Kristin Primary Care Unavailable Nguyen PA, Kristin Primary Care Unavailable Nguyen PA, Kristin Referring Unavailable Nguyen PA, Kristin Attending Unavailable Nguyen PA, Kristin Primary Care Unavailable Nguyen PA, Kristin Referring Unavailable Nguyen PA, Kristin Attending Unavailable Nguyen PA, Kristin Primary Care Unavailable Nguyen PA, Kristin Referring Unavailable Nguyen PA, Kristin Attending Unavailable Robotham, Cinthia Attending Unavailable Nguyen PA, Kristin Referring Unavailable Nguyen PA, Kristin Primary Care Unavailable Nguyen PA, Kristin Referring Unavailable Robotham, Cinthia Attending Unavailable Nguyen PA, Kristin Primary Care Unavailable Robotham, Cinthia Attending Unavailable Robotham, Cinthia Consulting Unavailable Robotham, Cinthia Referring Unavailable Nguyen PA, Kristin Primary Care Unavailable Allergies Allergy Classification Reported Allergen(s) Allergy Type Date of Onset Reaction(s) Facility (3 sources) Sulfamethoxazole Drug Allergy 5 [facility] [place] (3 sources) Trimethoprim Drug Allergy 5 [facility] [place] (1 source) Sulfamethoxazole Drug Allergy 5 [facility] Repository (1 source) Trimethoprim Drug Allergy [address] [place] [address] Repository Medications Completed/Discontinued Medications Medication Drug Class(es) Dates Sig (Normalized) Sig (Original) amoxicillin 500 mg oral capsule (3 sources) Penicillin-class Antibacterial Start: 01-08-2023 End: 01-18-2023 take 1 capsule by mouth three times daily Amoxicillin 500 mg capsule Discontinued 500 mg PO THREE TIMES A DAY 30 10 0 January 08, 2023 1:00am January 17, 2023 1:00am January 18, 2023 1:04am azithromycin 500 mg oral tablet (10 sources) Macrolide Antimicrobial Start: 03-18-2019 End: 03-21-2019 take 1 tablet by mouth once daily Azithromycin 500 MG Oral Tablet ; 1 (one) Tablet daily for 3 days Quantity: 3 {Tablet} Refills: 0 Ordered: 18-Mar-2019 MD Jimmy Allen Start: 18-Mar-2019 End: 21-Mar-2019 Status: Inactive Ethinyl Estradiol / Levonorgestrel (10 sources) Progestin, Estrogen, Progestin-containi ng Intrauterine Device Start: 07-16-2019 End: 11-19-2019 take 1 tablet by mouth once daily Seasonique 0.15-0.03 &0.01 MG Oral Tablet ; 1 (one) Tablet tablet daily for 0 days Quantity: 11 {Package} Refills: 1 Ordered: 19-Nov-2019 MANISH Nguyen Start: 16-Jul-2019 End: 19-Nov-2019 Status: Inactive Ethinyl Estradiol / norgestimate (10 sources) Progestin, Estrogen Start: 11-19-2019 End: 01-10-2022 Sprintec 28 0.25-35 MG-MCG Oral Tablet ; 1 (one) Tablet as directed for 0 days Quantity: 1 {Package} Refills: 11 Ordered: 10-Jan-2022 HERON Rojas Start: 19-Nov-2019 End: 10-Jan-2022 Status: Inactive sulfamethoxazole 800 mg / trimethoprim 160 mg oral tablet (10 sources) Dihydrofolate Reductase Inhibitor Antibacterial, Sulfonamide Antimicrobial Start: 01-12-2023 End: 01-17-2023 sulfamethoxazole 800 mg-trimethoprim 160 mg tablet ; 1 (one) tablet two times daily for 5 days Quantity: 10 {Tablet} Refills: 0 Ordered: 12-Jan-2023 MANISH Fulton Start: 12-Jan-2023 End: 17-Jan-2023 Status: Inactive traMADol hydrochloride 50 mg oral tablet (3 sources) Opioid Agonist Start: 03-27-2024 End: 04-09-2024 take 1 tablet by mouth every six hours as needed for pain Tramadol 50 mg tablet Discontinued 50 mg PO EVERY 6 HOURS as needed for pain 3 0 March 27, 2024 1:00am April 09, 2024 3:09pm Problems Active Problems Problem Classification Problem Date Documented Date Episodic/Chronic Abdominal pain (20 sources) Left sided abdominal pain; Translations: [Unspecified abdominal pain] 08-01-2021 Episodic Acute bronchitis (10 sources) Acute bronchitis; Translations: [Acute bronchitis, unspecified] 03-18-2019 Episodic Biliary tract disease (20 sources) Poorly functioning gallbladder; Translations: [Other specified diseases of gallbladder] 01-12-2023 Episodic Menstrual disorders (20 sources) Menorrhagia; Translations: [Excessive and frequent menstruation with regular cycle] 01-12-2023 Chronic Nonmalignant breast conditions (20 sources) Breast lump; Translations: [Unspecified lump in the right breast, unspecified quadrant] Episodic Comment on above: likely fibroadenomas Biopsy in 2021 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 Other connective tissue disease (10 sources) Pain in axilla; Translations: [Pain in right upper arm] 01-02-2018 Episodic Other injuries and conditions due to external causes (3 sources) Unspecified injury of unspecified wrist, hand and finger(s), initial encounter; Translations: [Unspecified injury of unspecified wrist, hand and finger(s), initial encounter] Onset: 01-12-2023 Episodic Other injuries and conditions due to external causes (20 sources) Injury of finger; Translations: [Unspecified injury of unspecified wrist, hand and finger(s), initial encounter] 01-12-2023 Episodic Other injuries and conditions due to external causes (10 sources) Injury of head; Translations: [Unspecified injury of head, initial encounter] 12-10-2015 Episodic Other lower respiratory disease (10 sources) Pleuritic pain; Translations: [Pleurodynia] 11-13-2018 Episodic Other non-traumatic joint disorders (20 sources) Pain in right knee; Translations: [Pain in joint, lower leg] 03-18-2015 Episodic Other upper respiratory infections (19 sources) Sore throat symptom; Translations: [Acute pharyngitis, unspecified] 01-17-2022 Episodic Residual codes; unclassified (10 sources) Sensation of being cold; Translations: [Other general symptoms and signs] 08-01-2021 Episodic Residual codes; unclassified (10 sources) Finding of body mass index; Translations: [Body mass index (BMI) pediatric, 5th percentile to less than 85th percentile for age] 01-24-2017 Episodic Spondylosis; intervertebral disc disorders; other back problems (20 sources) Low back pain; Translations: [Lumbago] 08-27-2024 Episodic Unclassified (10 sources) Menstrual problems - The menstrual problems are characterized as irregular menses (sometimes she will have a period 2 times a month- when she was running cross country; when that was over it went back to normal. States she has painful cramps and blood clots.) and have been occurring for 1 year. The first day of the last menstrual period was : (LMP ended 2 days ago; lasted x 5 days). Currently : no. The symptoms have been associated with low back pain, but have not been associated with nausea or vomiting. Note for Menstrual problems: Will also get headaches and tired during her period. Has never been sexually active. When she had an US for her gallbladder the tech mentioned that her uterus was tipped backwards.Sometimes will go through a tampon once an hour.Mom with menstrual irregularities- is scheduled to have a hysterectomy. 07-16-2019 Unclassified (10 sources) Knee pain - The onset of the knee pain has been gradual and has been occurring in an intermittent pattern for months. The course has been increasing. The knee pain is moderate in both knees (R>L (left is more of a rare occasion that it bothers her; right is daily)). The knee pain is described as being located in the entire knee. The knee pain is aggravated by sports activities. The knee pain is relieved by rest. The symptoms have been associated with popping/crepitus. There were no previous diagnostic tests. There were no previous evaluations. There has been no previous physical therapy. There has been no previous surgeries. Note for Knee pain: Feels like there is a lot of pressure just below patella and behind the knee. Has used tylenol, ice, and brace without improvement. Has had swelling. No radiation. 03-05-2015 Unclassified (1 source) Low back pain, unspecified; Translations: [Low back pain, unspecified] Onset: 09-29-2024 Past or Other Problems Problem Classification Problem Date Documented Date Episodic/Chronic Other and unspecified benign neoplasm (1 source) Benign neoplasm of right breast; Translations: [Benign neoplasm of right breast] Onset: 04-18-2024 Episodic Unclassified (10 sources) Finger pain - The pain is located in the of the right middle finger. This occurred 3 week(s) ago at home (pt smashed it in car window. She reports that the skin broke at the time of the injury.). Symptoms include pain, swelling, finger bruising and discoloration, but do not include deformity or decreased range of motion. The patient describes the pain as sharp (when touched). The patient is right hand dominant. The patient describes the pain as moderate in severity. Symptoms are exacerbated by moving the finger and direct pressure, but are not exacerbated by allowing the hand to hang down. The patient is not currently being treated for this problem. Note for Finger pain: Patient reports that the swelling has increased in the last 1-2 weeks. She reports pus coming out of the top of the finger in the last 1-2 days, which did decrease her pain.She has been on amoxicillin of the last 4 days for a strep infection. She reports that these symptoms are improving. 01-12-2023 Unclassified (10 sources) Form completion physical - The patient feels well with no complaints, has good energy level and is sleeping well. There are no current symptoms. The patient exercises 3 - 4 times per week. The patient has an appropriate balanced diet and takes no supplemental vitamins or iron and sleeps on average 8 hours per night. Habits include caffeine use. Safety measures include appropriate use of safety belts. There are no behavioral problems. Note for Form completion physical: Needs form completed for [employer]. 05-17-2022 Unclassified (10 sources) Cold Symptoms - Symptoms include ear fullness, sore throat, dry cough (Slight), chills, general malaise (tiredness, denies any body aches) and headache, but do not include sneezing, nasal congestion, runny nose, ear pain, productive cough, wheezing or fever. The onset was sudden 3 day(s) ago. The symptoms occur frequently. The patient describes this as mild and worsening. Current treatment includes non-prescription cold medication. The patient has not been exposed to an individual with similar symptoms. 01-17-2022 Unclassified (10 sources) Well adult female - The patient feels well with no complaints, has good energy level and is sleeping well. The first day of the last menstrual period was : (12/28/2021). The patient is not using any method of contraception at this time. The patient has a balanced diet and takes supplemental vitamins. The patient exercises 3 - 4 times per week. The patient sleeps 7 hours per night. Note for Well adult female: Patient needs a form completed today to start school in the [employer].Patient has noted a lump in her left breast for the past two years and lump in her right breast for the past 2-3 months. She denies any pain or size changes associated with either lump. She has not noted any skin changes or nipple discharge. She reports family history of breast cancer in some aunts and cysts in her mother and sister. 01-10-2022 Unclassified (10 sources) Abdominal pain - The onset of the abdominal pain has been acute and has been occurring in an intermittent pattern for 2 days. The course has been constant (happening more today). The pain is described as a mild sharp pain. The pain is located in the right upper quadrant and left upper quadrant. The symptoms have no aggravating factors but are relieved by antacids (tums). Note for Abdominal pain: Feels like gas pain.Has been using TUMs, pepto.BMs have been regular - no improvement following BM.Used heating pad and tried carbonated drink without improvement.No heartburn.Bloated feeling - all upper.Hard to sleep because of it.Prior to the pain starting had a bagel and granola bar.Hasn't had much of an appetite for a few months; early satiety; feeling really cold. Initially thought was stress related. 08-01-2021 Unclassified (10 sources) discuss control - Pt started seasonique in June-said she has been spotting in between periods. Had last period 2 weeks ago (was earlier than expected; was like a normal period) and started bleeding again on Sunday (again like a normal menses with clots, heavy, and cramps). Cramps have not been as bad on the OCP as they were without. Takes med daily at the same time. 11-19-2019 Unclassified (10 sources) Well child visit #4 - 13 to 17 years - The child is here for a 16 to 17 year well-child visit. The primary caregiver is the mother and father. The primary caregiver has no significant help or support. Family status: coping adequately. There are no behavioral problems. The patient has a balanced diet. There are no eating difficulties. Meals/day: 3. The child sleeps 7 hours at night. Menstruation: regular periods (OPC for heavy periods). The child performs well in school and interacts well with peers. Note for Well child visit #4 - 13 to 17 years: Working at [employer]. 09-22-2019 Unclassified (10 sources) Cold Symptoms - Symptoms include nasal congestion, runny nose, sore throat, hoarseness, productive cough (cant sleep because of the cough), fever (fever lst week for 2 days 102), chills, general malaise, headache and facial pain, but do not include ear pain. The onset was gradual 1 week(s) ago. The symptoms occur constantly. The patient describes this as moderate in severity and worsening. Current treatment includes non-prescription cold medication. Risk factors do not include smoking. The patient has been exposed to an individual with similar symptoms (goes to school and they have been sick), but has not been exposed to an individual with a cough, an individual with an upper respiratory infection, an individual with strep or secondhand smoke. Patient denies history of seasonal allergies, recurrent sinusitis, recurrent strep pharyngitis, asthma, tonsillectomy or recurrent ear infections. 03-18-2019 Unclassified (10 sources) pain under her left rib - Patient is here with her mom with complaints of having pain under her left ribs since yesterday - woke up in the night with it. Gets worse when she breathes in/out or when she talks - feels like knife stabbing her. When sitting she said it is sharp. No diarrhea, constipation, dysuria, or fever. Sometimes when it hurts really bad she feels like she is going to throw up. 5 days into menses now; regular. Gallbladder is out. No trauma or exertional activity recently. No change in symptoms with food. Feels SOB but that is only because she is taking shallow breaths. Certain movements make it worse as does pressure. No recent cold symptoms or fever. 11-13-2018 Unclassified (10 sources) Well child visit #4 - 13 to 17 years - The child is here for a 16 to 17 year well-child visit. The primary caregiver is the mother and father. Family status: coping adequately. There are no behavioral problems. The patient has a balanced diet. There are no eating difficulties. Meals/day: 3. The child sleeps 7 hours at night. Menstruation: regular periods (LMP about 3 wks ago.). The child performs well in school, interacts well with peers and participates in extracurricular activities. Safety measures taken include appropriate use of safety belts, home smoke detectors, avoiding exposure to passive smoke, counseling regarding substance abuse, counseling regarding safe sex/HIV and counseling regarding control. Note for Well child visit #4 - 13 to 17 years: No concerns today. Will be doing cross country. Working at [employer]. 09-16-2018 Unclassified (10 sources) painful lump underarm - Patient is here complaining that she has multiple painful lumps under her right armpit (3) and then one in the left arm pit. Also noticed a rash on Sunday. Noticed it on 12/28/2017. Says rash looks like it is getting better and now lumps/pain are improving. Started out red and now is skin colored. Denies that she had an pustules, etc. 01-02-2018 Unclassified (10 sources) Well child visit #4 - 13 to 17 years - The child is here for a 15 to 16 year well-child visit. The primary caregiver is the mother and father. Help and support are being provided by the father. Family status: coping adequately. There are no behavioral problems. The patient has a balanced diet, is eating a variety of foods and is allowed to eat junk foods. There are no eating difficulties. Meals/day: 3. The child sleeps 7 hours at night. Menstruation: regular periods. The child performs well in school, interacts well with peers and participates in extracurricular activities. Safety measures taken include appropriate use of safety belts and home smoke detectors. 09-21-2017 Unclassified (10 sources) Abdominal pain - The onset of the abdominal pain has been gradual (Abd/pelvis CT 10/27/16 - moderate stool - she did increase her fiber without improvement in symptoms; intermittent; flares at times and then calms down; has flared up 2-3wks ago now again. It is on her right side and around to her back. She is nauseated. Milk makes her nauseous and has a funny taste and she was a milk drinker. She is having harder time running past 10 minutes. [place] food is worse. Periods are regular, no dysuria, vomiting or fever.). 01-24-2017 Unclassified (10 sources) Abdominal pain - The onset of the abdominal pain has been gradual and has been occurring in an intermittent (but at some point daily) pattern. The course has been recurrent. The pain is described as a moderate sharp pain. The pain is located in the left upper quadrant (is on left side below the ribs; states when she feels that area she can feel something move;t hurts her when she walks, runs, and after she eatsIf she sits it feels better. 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 Decreased appetite x 3-4 weeks - eating bothers it. Nausea. No heartburn. Running after she eats makes it worse.Thinks this has been going on for about a year - no previous evaluations.Episodes last for about 5-10 minutes.No history of injury.) and does not radiate. There has been no associated constipation, diarrhea, dysuria or heartburn. 11-01-2016 Unclassified (10 sources) Well child visit #4 - 13 to 17 years - The child is here for a 14 to 15 year well-child visit. The primary caregiver is the mother and father. Family status: coping adequately. There are no behavioral problems. The patient has a balanced diet. There are no eating difficulties. Meals/day: 3. The child sleeps 8 hours at night. Menstruation: regular periods (LMP 2 wks ago). The child performs well in school, interacts well with peers and participates in extracurricular activities. Safety measures taken include appropriate use of safety belts and home smoke detectors. Note for Well child visit #4 - 13 to 17 years: Will be doing cross country and band this year. 09-18-2016 Unclassified (10 sources) cuncussion ? - Patient is here complaining that she was hit on the top of her head yesterday by the metal harness for her band instrument. Large lump appeared in the area right away but it is much smaller now. Went to the office yesterday and did ice application. Went home due to headache and frontal pressure; took ibuprofen. [place] a little sick this morning when she woke up but went to school (had eaten breakfast). Had a headache at school that worsened with reading and she felt dizzy. Continues with a little dizziness and pressure. No recent cold symptoms. No history of headaches. Hasn't taken any medication today. Little nausea but no vomiting. Lights and noise make the headache worse. Has a [employer] meet tomorrow. 12-10-2015 Unclassified (10 sources) Well child visit #4 - 13 to 17 years - The child is here for a 13 to 14 year well-child (Pt here today accompanied by mom for well child/sports physical. She will be going into 8th grade this Fall and be participating in [employer] in [place]. Needs Menactra Vaccine today.) visit. The primary caregiver is the mother and father. There are no behavioral problems. The patient has a balanced diet and is eating a variety of foods. There are no eating difficulties. Meals/day: 3 (plus snacks.). The child sleeps 7 hours at night. Menstruation: regular periods, menstrual discomforts and able to maintain daily schedule. The child performs well in school, interacts well with peers and participates in extracurricular activities. Safety measures taken include appropriate use of safety belts, home smoke detectors and avoiding exposure to passive smoke. 09-14-2015 Unclassified (10 sources) Well child visit #3 - 4 to 12 years - The child is here for a 13 year well-child visit. The primary caregiver is mother and father. Family status: coping adequately. There are no behavioral problems. The patient has a balanced diet. There are no eating difficulties. Meals/day: 3. The child sleeps 7 hours at night. The child performs well in school, interacts well with peers and participates in extracurricular activities. Safety measures taken include appropriate use of car seats/safety belts. Note for Well child visit #3 - 4 to 12 years: Previously a patient of Dr. Hu. 09-17-2014 Unclassified (8 sources) Back pain - The onset of the back pain has been gradual and has been occurring in an intermittent pattern for 3 months. The course has been recurrent. Note for Back pain: Patient reports her back pain comes and goes and she thinks it is better for awhile but then it returns and gets really bad again Patient reports her back constantly aches and when she moves it feels like stabbing pain. Pain is in lower back and extends down into posterior thighs. Bending over makes worse. Takes Ibuprofen prn for it. On Sunday she had bent forward and upon coming up her legs went numb and she fell down. 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 Wearing 20 pounds of gear on her waist. Using lumbar support while in the car. Hurts to lie flat on back. Has tried to sleep with pillows under knees - does seem to help to do this. 08-27-2024 Results Test Name Value Interpretation Reference Range Facility PT D/C Summary (1)on 025 PT D/C Summary (1) [facility] Physical [facility] [address] [place] [address] [address] [place] [address] / REHABILITATION SERVICES DISCHARGE SUMMARY MR#: [id number] Acct: [id number] Name: MARY ANN REID Rep #: [id number] : 2000 23 From: Demario Oconnor DPT Referring Dr.: BARB Timmons Status: REG R CR Insurance: [employer] [employer] SELF PAY INSURANCE Discharge Summary D/C summary: It has been my pleasure to treat MARY ANN REID referred by BARB Timmons, with the diagnosis of L sided lumbar radiculopathy for a total of 5 visit(s). Discharge Date: 10/03/24 Please see the following information for a summary of their discharge status. Subjective Subjective: Pt. reports being 50% better. She has not had a spasm since starting. Pt. did have an MRI, showing a small disc extrusion. Pt. reports having some L anterior leg pain. Pt. reports no leg weakness. Pain L side of lumbar spine: Pain Intensity (Out of 10): 2 Overall Improvement % Improvement: 50 Objective Objective/Function: ROM: LUMBAR SPINE flexion nil loss NE, ext min loss increase NW, SB min loss NE, rotation min loss NE. Pt. has slight tightness in B HS as well. MMT: No myotomal weakness noted. GAIT: Pt. has fairly normal gait pattern. Pt. does not have a marked lateral shift, posture is overall pretty good. Pt. does reports overall doing better, but still has a underlying pain that never really goes away. Goals Goal 1:: LTG: Pt. to be I with HEP. Goal Progress: Goal Met Goal 2:: STG: Pt. to have full ROM lumbar spine without increase in symptoms. Goal Progress: Progressing Goal 3:: STG: Pt. to no radicular symptoms in LLE. Goal Progress: Progressing Goal 4:: LTG: Pt. to complete all work related activities without increase in symptoms. Goal Progress: Progressing Goal 5:: LTG: pt. to have 5/5 B hip and core strength. Goal Progress: Goal Met Plan Plan: Pt. is overall doing better. She has a good idea of her exercises. She is going to go on vacation and do her exercises. If not improving she will look at possibly seeing a spinal specialist. D/C Information d/c sentence: If there are questions or concerns regarding this patient's physical therapy, please feel free to call me at [phone]. Thank you for the referral of this patient. Sincerely, Demario Ryder Sipos, DPT Balance/Gait/Functional tests Balance/Special Test Scores Oswestry Low Back Score: 9 Improvement % Improvement: 50 10/03/24 0929 CC: BARB Timmons CLS Signed Normal [facility] Magnetic resonance imaging r eportOrdered By: Harrison Gentile on 09-16-2024 Study report [facility] Imaging Services [address] [place] [address] Spine Lumbar (Routine) MR#: [id number] Acct: [id number] Name: MARY ANN REID Rep #: [id number] : 2000 F 23 From: Armando Gentile MD PCP: BARB Timmons Status: REG CLI Study:Spine Lumbar (Routine) Date of Exam: 09/16/24 Exam# [id number] Ordering Dr: Teo Nguyen PROCEDURE: SPINE LUMBAR (ROUTINE) 09/16/2024 REASON FOR EXAM: BACK PAIN RADICULOPATHY TECHNIQUE: SPINE LUMBAR (ROUTINE) COMPARISON: Lumbar spine radiographs 08/27/2024. FINDINGS: 5 fym-yna-ovmeojm lumbar-type vertebrae are preserved in height, with anatomic alignment. Straightening of the lumbar lordosis is likely positional in nature. Normal marrow signal. Small left paracentral disc extrusion at L5-S1, indenting the ventral thecal sac, with no significant spinal canal narrowing. Extrusion is in close proximity to the exiting left S1 nerve with no evidence ofimpingement. No significant neural foraminal narrowing on either side. No disc bulge, spinal canal or neural foraminal narrowing at the remaining levels. Conus medullaris is normal in signal and morphology, terminating at L1. Normal appearance of the cauda equina. Unremarkable paravertebral soft tissues. MRI/Spine Lumbar (Routine) IMPRESSION: Small left paracentral disc extrusion at L5-S1, with no significant spinal canalor neural foraminal narrowing. No evidence for cauda equina nerve root impingement. Reading Location: [facility] CC: BARB Timmons ~ Php Architect: Signed [facility] Spine Lumbar (Routine)on Spine Lumbar (Routine) [facility] Imaging Services [address] [place], [place] [address] Spine Lumbar (Routine) MR#: [id number] Acct: [id number] Name: MARY ANN REID Rep #: [id number] : 2000 F 23 From: Harrison Gentile MD PCP: BARB Timmons Status: REG CLI Study: Spine Lumbar (Routine) Date of Exam: 09/16/24 Exam# [id number] Ordering Dr: Kristin Nguyen PROCEDURE: SPINE LUMBAR (ROUTINE) 09/16/2024 REASON FOR EXAM: BACK PAIN RADICULOPATHY TECHNIQUE: SPINE LUMBAR (ROUTINE) COMPARISON: Lumbar spine radiographs 08/27/2024. FINDINGS: 5 yvb-txy-vnekosl lumbar-type vertebrae are preserved in height, with anatomic alignment. Straightening of the lumbar lordosis is likely positional in nature. Normal marrow signal. Small left paracentral disc extrusion at L5-S1, indenting the ventral thecal sac, with no significant spinal canal narrowing. Extrusion is in close proximity to the exiting left S1 nerve with no evidence of impingement. No significant neural foraminal narrowing on either side. No disc bulge, spinal canal or neural foraminal narrowing at the remaining levels. Conus medullaris is normal in signal and morphology, terminating at L1. Normal appearance of the cauda equina. Unremarkable paravertebral soft tissues. MRI/Spine Lumbar (Routine) IMPRESSION: Small left paracentral disc extrusion at L5-S1, with no significant spinal canal or neural foraminal narrowing. No evidence for cauda equina nerve root impingement. Reading Location: [id number] CC: BARB Timmons Php Architect: Signed Normal [facility] Inital Evaluation (1) - PTon 09-08-2024 Inital Evaluation (1) - PT [facility] Physical [facility] [address] [place] [address] [address] [place] [address] / REHABILITATION SERVICES INITIAL EVALUATION MR#: [id number] Acct: [id number] Name: MARY ANN REID Rep #: [id number] : 2000 23 From: Demario Oconnor DPT Referring Dr.: BARB Timmons Status: REG R CR Insurance: [employer] SELF PAY INSURANCE Patient's Visit Information Visit Information Visit Information: MARY ANN REID is a 23 year old F referred to Physical Therapy by BARB Timmons with a diagnosis of L sided lumbar radiculopathy. 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 Subjective Subjective: Pt. is here today for her initial evaluation with diagnosis of lumbar radiculopathy. Pt. reports having issues on and off for a few years. Pt. reports she will bend over or lift something and have an intense episode where she can barely stand up. This will last a few days then go away. Pt. reports she feels like it is happening more consistent. Pt. reports pain can go down both legs at times. pt. reports mornings are painful, better as she gets moving. sitting is worse than standing and walking. Pt. has tried some stretching but has not been helpful. 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 Pt. would like to get back to all work and recreational lifting without issues. Pain L side of lumbar spine: Pain Intensity (Out of 10): 2 Pain Intensity Range: 0 and 7 Objective Objective: POSTURE: Pt. has decent posture in stance. No marked lateral shift noted. PALPATION: Pt. has increased pain with spring testing at L4-S1. No marked SI joint pain. NEURO: normal sensation and DTR of BLEs. Pt. is able to rise on heels and toes without issues. ROM: LUMBAR SPINE: flexion min loss increase NW upon return, ext min/mod loss increase NW, SB nil loss NE bilat, rotation nil loss NE bilat. Pt. has normal HS length bilat. Pt. has normal hip flexor length bilat. MMT: Pt. has 5/5 strength in distal LEs. 5-/5 hip extensors and abductors bilat. Fair- core strength, fair- lumbar extensors. GAIT: normal without issues. Balance/Special Test Scores Oswestry Low Back Score: 13 Goals Goal 1:: LTG: Pt. to be I with HEP. Goal Time Frame: 4-6 Weeks Goal 2:: STG: Pt. to have full ROM lumbar spine without increase in symptoms. Goal Time Frame: 2-4 Weeks Goal 3:: STG: Pt. to no radicular symptoms in LLE. Goal Time Frame: 2 Weeks Goal 4:: LTG: Pt. to complete all work related activities without increase in symptoms. Goal Time Frame: 4-6 Weeks Goal 5:: LTG: pt. to have 5/5 B hip and core strength. Goal Time Frame: 4-6 Weeks Rehabilitation Potential Physical Therapy Diagnosis: Pt. has signs and symptoms consistent with L sided lumbar radiculopathy. Pt. has marked pain in AMs, with sitting and with all bending/lifting. She did have a + response with extension progression today. Mild increase in symptoms but centralization of symptoms as well. Pt. would benefit from PT to work on her lumbar ROM and core stability to reduce future injuries. Rehabilitation Potential: Excellent Anticipated Interventions Patient/Client Instruction: Educate patient on: Condition, Plan of Care, Risk Factors and Benefits of Fitness Program For the Purpose of:: To improve decision making, To facilitate caregiver knowledge, To improve self management, To prevent re-injury and To improve ability to perform tasks related to life management Therapeutic Exercise to Include: Strength training, Power training, Passive ROM, Active ROM, Dynamic Lumbar Stabilization and Leonard Exercises For the Purpose of:: To decrease pain, To increase ROM, To improve nutrient delivery to tissue, To increase oxygenation perfusion, To improve muscle performance and motor function, To improve ability to perform ADL's, To improve gait and locomotor functions, To improve health of tissue and To decrease soft tissue restriction IF ES: Yes Cryotherapy (ice pack, ice massage): Yes For the Purpose of:: To decrease pain, To increase ROM, To improve nutrient delivery to tissue, To increase oxygenation perfusion, To improve health of tissue, To decrease soft tissue restriction and To increase flexibility/ROM Text: Thank you for the opportunity to evaluate your patient. For Medicare and Medicare HMO plans, please review the plan of care and approve it. It will need to be FAXED BACK to us at [phone] for Medicare purposes. For Medicare only, by signing this I certify the plan of care. Please let me know if there are questions or concerns regarding this plan of care. Physician Signature: (more content not included)... Normal [facility] L/S Spine Min 4 Viewson 07-0 -2024 L/S Spine Min 4 Views [facility] Imaging Services [address] [place], [place] [address] [phone] L/S Spine Min 4 Views MR#: [id number] Acct: [id number] Name: MARY ANN REID Rep #: [id number] : 2000 F 23 From: Jaspal Hernandez PCP: BARB Timmons Status: REG CLI Study: L/S Spine Min 4 Views Date of Exam: 08/27/24 Exam# [id number] Ordering Dr: Kristin Nguyen PROCEDURE: L/S SPINE MIN 4 VIEWS 08/27/2024 REASON FOR EXAM: LOW BACK PAIN W/RADICULOPATHY TECHNIQUE: Four view lumbar spine series including bilateral oblique views COMPARISON: None. RAD/L/S Spine Min 4 Views IMPRESSION: Surgical clips are seen over the medial right abdomen. No evidence of spondylolysis or spondylolisthesis. Sacroiliac joints appear symmetric and within the normal range. No significant degenerative change or disc narrowing is noted. No fracture is seen. Negative examination. Reading Location: [place] [address] CC: BARB Timmons Php Architect: Signed Normal [facility] Surgery Visit Reporton 04-09 Surgery Visit Report [facility] [address] [place] [address] OFFICE VISIT Date of Service: 04/09/24 MR#: [id number] Acct: [id number] Name: MARY ANN REID Rep #: [id number] : 2000 Provider: Dr. Cinthia sneed MD Age/Sex: 23/F Location: [facility] Status: Signed Intake Vital Signs 03/27/24 09:16 04/01/24 11:50 Height 5 ft 6 in 5 ft 6 in Intake Visit Reasons: EXCISION OF BREAST MASS DOS 03/27 Chief Complaint: excision of r breast mass Size Maker Required: No Is patient in pain?: No Allergies sulfamethoxazole (From Bactrim) Allergy (Verified 04/09/24 14:09) Hives trimethoprim (From Bactrim) Allergy (Verified 04/09/24 14:09) Hives Have you fallen in the past year?: No Subjective Details: 23-year-old female presents status post excision of right breast fibroadenoma. Pathology showed juvenile fibroadenoma completely excised. Patient did have some bruising that is resolving. Otherwise doing well. Objective Details: Right breast periareolar incision healing well with Dermabond., Resolving ecchymosis Coding Level of Care Code Global Post Op Diagnoses S/P excision of fibroadenoma of breast Z98.890; Z86.018 [facility] Medical History (Updated 04/10/24 @ 12:[address] Cinthia Ruiz MD) Alcohol use Non-smoker Lump of right breast Acute streptococcal pharyngitis Acute pharyngitis, unspecified Acute frontal sinusitis, unspecified Surgical History (Updated 04/10/24 @ 12:[address] Cinthia Ruiz MD) S/P excision of fibroadenoma of breast Hx of wisdom tooth extraction S/P laparoscopic cholecystectomy Family History Grandfather Diabetes Heart disease Hypertension Cancer skin Kidney disease Grandmother Heart disease Mother CAD (coronary artery disease) Aunt Cancer uterine Social History Smoking Status: Never smoker alcohol intake: never substance use type: does not use Assessment and Plan (No Qualifiers) Assessment and Plan (1) S/P excision of fibroadenoma of breast: Status: Acute Comment: right???path juvenile fibroadenoma Plan Patient is doing well, incision healing well. Follow-up as needed. Cinthia Ruiz M.D. Pager: [phone] [facility] [address] [place] [address] Office: [phone] 04/10/24 1223 Date ____ Cinthia Ruiz MD Cosigner Signature: Date ____ (if applicable) CC: Normal [facility] Breast Biopsy Specimenon Breast Biopsy Specimen [facility] Imaging Services [address] [place] [address] Breast Biopsy Specimen MR#: [id number] Acct: [id number] Name: MARY ANN REID Rep #: [id number] : 2000 F 23 From: Manish blevins MD PCP: BARB Timmons Status: [facility] Study: Breast Biopsy Specimen Date of Exam: 03/27/24 Exam# [id number] Ordering Dr: Cinthia Ruiz MD EXAM: BREAST BIOPSY SPECIMEN CLINICAL HISTORY: Breast mass. COMPARISON: None. TECHNIQUE: Imaging of the specimen was obtained. FINDINGS: The specimen contains the mass. BI/Breast Biopsy Specimen IMPRESSION: The specimen contains the mass. Reading Location: [place] [address] CC: Dr. Cinthia Ruiz MD; BARB Timmons Php Architect: Signed Normal [facility] Discharge Instructionon 02-28 Discharge Instruction [facility] Medical Records Department [address] [place] [address] Instructions for Home/Discharge Instructions 03/27/24 1145 MR#: [id number] Acct: [id number] Name: MARY ANN REID Rep #: [id number] : 2000 23 From: Cinthia Ruiz MD PCP: BARB Timmons Status:[facility] Discharge Instructions Diet Discharge Diet: No restrictions Activity Discharge Activity: May Not Drive (while taking narcotic pain meds.) and May Shower (In 24 hours) May shower in (days): 1 Lifting Restrictions: 20 pounds for 1 week on the right. Additional Activity Instructions:: Wear good compression bra even at night for the first couple nights Dressing / Incision Call your doctor if your incision/area has: Continuous Slow Oozing, Sudden Increased Bleeding, Increased Pain/ Swelling and Increased Redness Call your doctor if you observe: Fever of 101 or Higher Suture Line Care: Avoid Pulling/Pushing and Avoid Pinching/Bending Remove Dressing in: 1 day Additional Dressing/Incision Instructions:: Remove bulky dressing tomorrow. Dermabond (glue) was used at the incision this may start to peel off in about 5 days. Follow Up Care Please Follow Up With: Cinthia Ruiz MD When: Please call [phone] for an appointment to be seen in 2 week. Test Results: Test results from this visit will be discussed in further detail at your follow-up appointment, if applicable. Discharge Plan Admission Attending Provider: Cinthia Ruiz Primary Care Provider: Kristin Nguyen Instructions Print Language: Frisian Discharge Orders/Prescriptions Prescriptions: New tramadol 50 mg tablet 50 mg PO Q6H PRN (Reason: pain) Qty: 3 0RF Referrals / Follow Up: Kristin Nguyen PA [Primary Care Provider] - Disposition Disposition (needs filled in before D/C Order can be placed): Home, Self Care 03/27/24 1146 Cinthia Ruiz MD CC: BARB Timmons Signed [facility] MR/POSTOP.[facility] 03-27-2024 MR/POSTOP.[facility] Medical Records Department [address] [place] [address] Anesthesia Postop Eval I 03/27/24 1202 MR#: [id number] Acct: [id number] Name: MARY ANN REID Rep #: [id number] : 2000 23 From: Briana Menendez CRNA PCP: BARB Timmons Status:REG SDC Y Race: C Location: [place] [address] Anesthesia: Postop Eval I Current Vital Signs Temperature: 97.3 F Pulse Rate: 86 Blood Pressure: 113/82 Respiratory Rate: 16 Pulse Ox: 100 Oxygen Delivery Method: Room Air Assessment Airway patent: Yes Spontaneous unlabored respirations: Yes Mental status: Awake and Calm nausea: No Vomiting: No Anesthesia Complication: No Fluid Hydration Crystalloid volume administer (ml): 700 Total IV fluid infused: 700 Progress Note Anesthesia document: Postop Eval 1 completed: Yes 03/27/24 1202 Date ____ Briana Menendez CRNA Cosigner Signature: Date ____ CC: Signed Normal [facility] MR/[id number] 03-27-2024 MR/POSTOPAN2 [facility] Medical Records Department [address] [place] [address] Anesthesia Postop Eval II 03/27/24 1345 MR#: [id number] Acct: [id number] Name: MARY ANN REID Rep #: [id number] : 2000 23 From: Suraj Judge MD PCP: BARB Timmons Status:[facility] Y Race: C Location: [facility] Anesthesia Postop Eval I Sum Postop Eval Completion status Anesthesia document: Postop Eval 1 completed: Yes Anesthesia Postop Eval I Summary Anesthesia Postop Eval I Summary: Anesthesia Postop Eval I: Assessment Summary Airway patent Yes 03/27/24 12:02 LAY OUT CARPENTER.SKOBY Spontaneous unlabored Yes 03/27/24 12:02 LAY OUT CARPENTER.MALIKAOBRobert respirations Mental status Awake,Calm 03/27/24 12:02 LAY OUT CARPENTER.SKOBY nausea No 03/27/24 12:02 LAY OUT CARPENTER.SKOBY Vomiting No 03/27/24 12:02 LAY OUT CARPENTER.SKOBY Anesthesia Postop Eval I: Fluid Summary Crystalloid volume administer 700 03/27/24 12:02 LAY OUT CARPENTER.SKOBY (ml) Colloids volume administered ( ml) Blood Product volume administered (ml) Total IV fluid infused 700 03/27/24 12:02 LAY OUT CARPENTER.SKOBY Anesthesia Postop Eval I: Summary Notes Anesthesia Complication No 03/27/24 12:02 LAY OUT CARPENTER.SKOBY Anesthesia Complication Comment: Post-operative progress note Anesthesia: Postop Eval II Evaluation Mental status: Awake and Calm Pain Level: 0 nausea: No Vomiting: No Complications Anesthesia Complication: No 03/27/24 1345 Date ____ Suraj Judge MD Cosigner Signature: Date ____ CC: Signed Normal [facility] Operative Reporton 5 Operative Report [facility] Medical Records Department [address] [place] [address] Operative Report 03/27/24 1141 MR#: [id number] Acct: [id number] Name: MARY ANN REID Rep #: [id number] : 2000 23 From: Cinthia Ruiz MD PCP: BARB Timmons Status:[facility] Location: [place] [address] Operative Report (Standard) Operative Information Date of Procedure: 03/27/24 Pre-Operative Diagnosis: Right breast fibroadenoma Post-Operative Diagnosis: Same Surgery/Procedure Performed: Excisional right breast fibroadenoma tape controlled machine stitcher: Yes Tube Molder Fiberglass: Magali Ramirez Tasks completed by information assistant: Opening closing and Retracting Type of Anesthesia: General/Supplemental RN Documented Start/Stop Times: Operation Date: 03/27/24 10:30 Case Time Into Pre-Op 03/27/24 09:02 Out of Pre-Op 03/27/24 10:50 Anesthesia Start 03/27/24 10:52 Into Room 03/27/24 10:52 Procedure Start 03/27/24 11:05 Procedure End 03/27/24 11:47 Anesthesia End 03/27/24 11:56 Out of Room 03/27/24 11:56 Into Recovery 03/27/24 12:00 Into Phase II Recovery 03/27/24 12:37 Out of Recovery 03/27/24 12:37 Procedure Start Time: 11:05 Procedure Stop Time: 11:47 Select all DRAINS/GRAFTS/IMPLANTS that apply: None Special Medications: Ancef 2 g IV x 1 Estimated Blood Loss: < 10 CC Specimen collected: Yes Description of specimen(s) removed: Right breast mass???previous biopsy fibroadenoma Description of surgery: Indications???23-year-old female previous right breast biopsy for fibroadenoma however this has enlarged in size about 3 times the previous size since previous biopsy. Patient was brought to operating placed spine operating table. Timeout was completed verifying correct patient, procedure, site, positioning, special, prior began procedure. General anesthesia was induced. Patient's right breast was prepped draped in a sterile fashion. A areolar border incision was planned in such a way as to minimize the amount of dissection to reach the mass. Flaps were raised in the location of the mass. 2 silk dboxqm-rp-lzwux stay suture was placed on the breast mass and used for traction. Dissection was then taken down circumferentially with electrocautery, taking care to include the entire breast mass. The specimen was removed. The specimen was oriented and sent to radiology. Confirmation was received that the entire target lesion had been resected along with previously placed clip. The cavity was irrigated. Hemostasis was obtained with electrocautery. The breast incision was closed with interrupted sutures of 3-0 Vicryl and subcuticular sutures of 4-0 Monocryl and Dermabond. No attempt was made to close the space. A dressing of fluff gauze and supportive bra placed. The patient tolerated procedure well was taken to the postanesthesia care in stable condition. Surgical Findings: Please see operative report Complications Complications: No 03/27/24 1250 Cosigner Signature (if applicable): CC: Dr. Cinthia Ruiz MD; BARB Timmons Signed Normal [facility] ,Urineon 03-27-2024 Beta HCG ( test) Ql (U) Negative Normal [facility] Comment on above: Result Comment: Very dilute urine specimens, as indicated by a low specific gravity, may not contain agency sales representative levels of hCG. If is still suspected, a first morning urine specimen should be collected 48 hours later and tested. Performed By: #### L [id number] ####[facility] [id number] [place], [address] Surgery Specimen Level Gregorio 03-27-2024 Surgery Specimen Level IV Patient Age/Sex Location Account Attending Physician [facility] [id number] Dr. Cinthia Ruiz MD Specimen: [id number] Received: 03/27/24 Status: BRANDEN Phillips Num: [id number] Spec Type: BREAST BX Subm Dr: Dr. Cinthia Ruiz MD HEADER OPERATION: Excision, right fibroadenoma breast PRE-OP DIAGNOSIS: Lump of right breast TISSUE SUBMITTED: Fibroadenoma right breast *short tag- anterior, long tag- medial* MICROSCOPIC DIAGNOSIS Right breast lesion, excisional biopsy: Juvenile fibroadenoma of breast. See comment. SJ.mr 04/07/2024 COMMENT The lesion appears to be completely excised. The specimen is sent to [facility] for expert opinion, reviewed by Dr. Michaud and the above diagnosis is rendered. The complete report is viewable in the patient's EMR. Please make reference to previous specimen [id number] right breast, 4oc'clock, 2cm from nipple, core biopsy with diagnosis of fibroadenoma and left breast, 4o'clock, 1cm from nipple, core biopsy with diagnosis of fibroadenoma. Clinical correlation and appropriate follow up are necessary. This case has been reviewed in consultation with Dr. Bautista who concurs with the above diagnosis. IDC:[id number] MICROSCOPIC DESCRIPTION Slides are reviewed. GROSS DESCRIPTION Received in fixative is one container labeled with the patient's name and designated Fibroadenoma right breast. The specimen consists of a arreola nodular piece of tissue without needle localization weighing 49gm and measuring 6 x 5 x 4.5cm. The specimen is oriented as follows: short- anterior, long -medial. The specimen is inked as follows: anterior - yellow, posterior - black, superior - blue, inferior - green, medial - red and lateral - orange. Sections reveal that entire specimen is replaced by a arreola solid nodule. Area of hemorrhage, necrosis or cystic degeneration are not identified. Doping Supervisor sections are submitted in eight cassettes as follows: 1- perpendicular medial and lateral margins, 2-8- tumor, nodular mass including other margins. 03/28/2024 TC:1 Patient Age/Sex Location Account Attending Physician [facility] [place] [id number] Dr. Cinthia Ruiz MD CPT:84443 Patient Age/Sex Location Account Attending Physician [facility] [place] [id number] Dr. Cinthia Ruiz MD Signed (signature on file) Dr. Mynor Fall MD 04/07/24 1142 Normal [facility] Comment on above: Performed By: #### P ROGELIO ####[facility] [id number] [place], [address] Surgery Visit Reporton 03-17 Surgery Visit Report [facility] [address] [place] [address] OFFICE VISIT Date of Service: 03/17/24 MR#: [id number] Acct: [id number] Name: MARY ANN REID Rep #: [id number] : 2000 Provider: Dr. Cinthia sneed MD Age/Sex: 23/F Location: [facility] Status: Signed Intake Vital Signs 01/08/23 17:25 03/17/24 11:19 Height 5 ft 6 in 5 ft 6 in Weight: 134 lb 4 oz BMI 21.7 BP 125/80 H Blood Pressure Location Lt brachial Position Sitting Respiration 18 Pulse 68 Pulse Source Monitor Temp 97.2 F L Temp Source Temporal Pulse Oximetry (%) 98 Oxygen Delivery Method room air Intake Visit Reasons: EXCISION OF R BREAST MASS Chief Complaint: excision of r breast mass Accompanied by: Mother Is patient in pain?: No Allergies sulfamethoxazole (From Bactrim) Allergy (Verified 03/17/24 11:22) Hives trimethoprim (From Bactrim) Allergy (Verified 03/17/24 11:22) Hives Medications ???Medication ???Instructions ???Recorded ???Confirmed ???Type NK 03/17/24 03/17/24 History PFSH Medical History (Updated 03/17/24 @ 11:[address] Cinthia Ruiz MD) Lump of right breast Acute streptococcal pharyngitis Acute pharyngitis, unspecified Acute frontal sinusitis, unspecified Surgical History S/P laparoscopic cholecystectomy Family History Grandfather Diabetes Heart disease Hypertension Cancer skin Kidney disease Grandmother Heart disease Mother CAD (coronary artery disease) Aunt Cancer uterine Social History (Updated 03/17/24 @ 11:18 by Ann Marie Jarrett LPN) Smoking Status: Never smoker alcohol intake: never substance use type: does not use HPI HPI HPI: 23-year-old female presents due to enlarging right breast fibroadenoma. Patient had this biopsied in January 2022 along with the left breast which was both fibroadenomas. However the right breast has grown in size. Patient states about the size of a golf ball. This can cause discomfort if her breast from work is pressing on this area. ROS General General: No weight change, appetite, fatigue, colon cancer, breast cancer or weakness HEENT HEENT: No difficulty swallowing, eye injury, eye surgery, swollen glands or hoarseness Endo Endocrine: No thyroid disease, diabetes mellitus, thyroid cancer, Hair loss, heat intolerance or cold intolerance Skin Skin: No rash or changing moles Breast Breast: Yes right breast lump; No left breast lump, nipple discharge, breast pain, abnormal mammogram, abnormal US or breast enlargement Musc Musculoskeletal: No back problems, arthritis, rheumatoid arthritis, gout or joint pain Cardio Cardiovascular: No murmur, pacemaker, heart disease, atrial fibrillation, high blood pressure, heart attack, heart stent, palpitations, shortness of breat with exertion or chest pain Psych Psychiatric: No depression, anxiety or hearing voices Resp Respiratory: No shortness of breath, No sleep apnea, No cough, No COPD, No asthma, No emphysema and No wheezing Gastro Gastrointestinal: No abdominal pain, No nausea or vomiting, No diarrhea, No constipation, No blood in stool, No acid reflux, No hemorrhoids, No ulcers, No gallbladder problem and No black,tarry stools Albert Hematologic: No blood thinners, No blood disorders, No bleeding, No anemia and No blood clots Neuro Neurologic: No numbness, No tingling and No weakness Exam Const General: cooperative, healthy appearing and no acute distress [facility] Head: normal to inspection Chest Other: Breast inspection: Symmetric bilaterally, can faintly see right breast enlarging mass at 4:00 when laying down Right breast: Fibroglandular tissue, 8 cm x 7 cm mass at 4:00 previously biopsied and was a fibroadenoma question whether this is a phyllodes with the growth, no nipple discharge or pain, no change in overlying skin Left breast: Fibroglandular tissue, 2 x 2.5 cm mass at 4:00 2 cm previously biopsied as well???fibroadenoma, no nipple discharge or pain, no change in overlying skin No axillary or supraclavicular adenopathy bilaterally Resp Effort Inspection: normal respiratory effort Cardio Rate: regular rate GI Inspection: non-distended Palpation: soft Skin General: no rashes or lesions noted Neuro General: patient oriented x3 Extrem General: no clubbing, cyanosis or edema Psych Affect: normal affect Assessment and Plan Assessment and Plan (1) Lump of right breast: Status: Acute Comment: Biopsy in 2021 fibroadenoma but has grown in size Plan Plan for excisional breast biopsy of the right breast at 4:00. Discussed risk including but not limited to bleeding, infection, an (more content not included)... Normal [facility] HAND RT MIN 3 VIEWSon 2022 HAND RT MIN 3 VIEWS [place] [address] Patient: MARY ANN REID Phone#: : [phone] Age: 22 Gender: F Pt. Type: Out Account: [id number] Location: [facility] Ordering: SILVIA FULTON Exam Date: 01/12/2023/10:29 Family Phys: Charge Code: 115478 Physician: [place] Order #: [id number] Dose#: PROCEDURE: X-RAY HAND RT COMPLETE MIN 3 VIEWS COMPARISON: None. INDICATIONS: Injury. FINDINGS: BONES: Normal. No significant arthropathy or acute abnormality. SOFT TISSUES: Negative. No visible soft tissue swelling. EFFUSION: None visible. OTHER: Negative. CONCLUSION: No acute disease. Dictated by: Mary Alice Mccarthy MD on 01/12/2023 at 11:34 Approved by: Mary Alice Mccarthy MD on 01/12/2023 at 11:34 Normal [facility] Laboratory - Microbiology an d Antimicrobial susceptibilityon 01-17-2022 S. pyogenes Ag EIA Ql (Throat) Negative Normal [employer] [facility], [employer] [facility], [employer] Laboratory - Chemistry and C hemistry - challengeon 08-02-2021 Albumin [Mass/Vol] 3.8 g/dL Normal 3.4 - 5.0 g/dL [facility], [employer] [facility], [employer] Albumin [Mass/Vol] 1.0 g/dL Normal 0.9 - 1.6 [facility]. ALP [Catalytic activity/Vol] 70 U/L Normal 46 - 116 U/L [facility].; [facility]. ALT [Catalytic activity/Vol] 28 U/L Normal 14 - 59 U/L [facility].; [facility], [facility] Anion gap [Moles/Vol] 14 mmol/L Normal 10 - 20 mmol/L [facility].; [facility]. AST [Catalytic activity/Vol] 16 U/L Normal 13 - 39 U/L [facility].; [facility], [facility]. Bilirubin [Mass/Vol] 0.2 mg/dL Normal 0.2 - 1.0 mg/dL [facility]; [facility], [facility] Calcium [Mass/Vol] 9.1 mg/dL Normal 8.5 - 10.1 mg/dL [facility].; [facility], [facility] Chloride [Moles/Vol] 102 mmol/L Normal 98 - 107 mmol/L [facility].; [facility], [facility]. CO2 [Moles/Vol] 27.4 mmol/L Normal 21.0 - 32.0 mmol/L [facility].; [facility], [facility] Comprehensive metabolic 2000 panel CMP with eGFR Normal [facility]; [facility], [facility] Creatinine [Mass/Vol] 0.82 mg/dL Normal 0.55 - 1.02 mg/dL [facility].; [facility], [facility]. CRP [Mass/Vol] 4.20 mg/dL Abnormal 0.00 - 0.90 mg/dL [facility].; [facility], [facility]. GFR/1.73 sq M.predicted among blacks MDRD (S/P/Bld) [Vol rate/Area] mL/min/{1.73_m2} Normal 60 - 999 {ML/MINUTE } [facility], [facility].; [facility], [facility]. GFR/1.73 sq M.predicted MDRD (S/P/Bld) [Vol rate/Area] mL/min/{1.73_m2} Normal 60 - 999 {ML/MINUTE } [facility]; [facility] Globulin (S) [Mass/Vol] 4.0 g/dL Abnormal 1.5 - 3.8 g/dL [facility]; [facility] Glucose [Mass/Vol] 90 mg/dL Normal 74 - 106 mg/dL [facility]; [facility] Lipase [Catalytic activity/Vol] 81.0 U/L Normal 73.0 - 393 U/L [facility]; [facility] Potassium [Moles/Vol] 3.4 mmol/L Abnormal 3.5 - 5.1 mmol/L [facility]; [facility] Protein [Mass/Vol] 7.8 g/dL Normal 6.4 - 8.2 g/dL [facility]; [facility], [facility] Sodium [Moles/Vol] 140 mmol/L Normal 136 - 145 mmol/L [facility]; [facility] TSH Qn 2.19 m[IU]/L Normal 0.34 - 5.60 {uIU/ml} [facility]; [facility], [facility] Urea nitrogen [Mass/Vol] 11 mg/dL Normal 7 - 18 mg/dL [facility]; [facility], [facility]. Urea nitrogen/Creatini ne [Mass ratio] 13 {ratio} Normal 0 - 30 {ratio} [facility]; [facility] Laboratory - Hematology and Cell countson 08-02-2021 Basophils (Bld) [#/Vol] 0.00 {3/UL} Normal 0.00 - 0.10 {3/UL} [facility]; [facility] Basophils/100 WBC (Bld) 0.9 % Normal 0.0 - 2.0 % [facility]; [facility], [facility] CBC W Auto Differential panel (Bld) CBC + DIFF Normal [facility]; [facility] Eosinophils (Bld) [#/Vol] 0.10 {3/UL} Normal 0.00 - 0.50 {3/UL} [facility], [facility].; [employer], [employer] Eosinophils/100 WBC (Bld) 2.8 % Normal 0.0 - 7.0 % [place] [employer] [facility].; [place] [employer], [facility]. Erythrocyte distribution width (RBC) [Ratio] 12.7 % Normal 12.0 - 15.6 % [facility], [facility].; [employer], [employer] Hematocrit (Bld) [Volume fraction] 41.3 % Normal 34.0 - 46.0 % [facility], [facility].; [place] [employer], [facility]. Hemoglobin (Bld) [Mass/Vol] 13.7 g/dL Normal 12.0 - 16.0 g/dL [facility], [facility].; [place] [employer], [facility]. Lymphocytes (Bld) [#/Vol] 2.10 {3/UL} Normal 0.80 - 2.80 {3/UL} [place] [employer], [employer] Lymphocytes/100 WBC (Bld) 43.6 % Normal 20.0 - 45.0 % [place] [employer], [facility].; [employer], [employer] MCH (RBC) [Entitic mass] 29 pg Normal 27 - 33 pg [employer], [employer] MCHC (RBC) [Mass/Vol] 33 {X10_3} Normal 32 - 36 {X10_3} [place] [employer], [facility].; [employer] MCV (RBC) [Entitic vol] 86 fL Normal 80 - 99 fL [place] [employer] [facility].; [employer], [facility]. Monocytes (Bld) [#/Vol] 0.40 {3/UL} Normal 0.20 - 1.00 {3/UL} [employer], [facility].; [employer] Monocytes/100 WBC (Bld) 8.3 % Normal 0.0 - 10.0 % [employer], [employer] Morphology Bert (Bld) [Interp] N/A Normal [place] [employer] [facility].; [employer] Neutrophils (Bld) [#/Vol] 2.10 {3/UL} Normal 1.50 - 7.10 {3/UL} [employer] Neutrophils/100 WBC (Bld) 44.4 % Abnormal 46.0 - 76.0 % [employer] Platelet mean volume (Bld) [Entitic vol] 8.7 fL Normal 6.6 - 10.5 fL [employer] Platelets (Bld) [#/Vol] 326 {3/UL} Normal 150 - 450 {3/UL} [employer] RBC (Bld) [#/Vol] 4.81 {6/UL} Normal 4.10 - 5.30 {6/UL} [employer] WBC (Bld) [#/Vol] 4.7 {3/UL} Normal 4.5 - 10.8 {3/UL} [employer] No Panel Informationon 08-02 AGE 20 {years} Normal [employer] MANUAL DIFF N/A Normal [employer] CBC (INCLUDES DIFF/PLT)on Basophils (Bld) [#/Vol] 0.041 10*3/uL Normal 0-200 [facility] Comment on above: Performed By: #### 6 399 #### [facility] [place] [address] Fork Lift Mechanic: Alex Wong MD Basophils/100 WBC (Bld) 0.9 % Normal [facility] Comment on above: Performed By: #### 6 399 #### [facility] [id number] Fork Lift Mechanic: Alex Wong MD Eosinophils (Bld) [#/Vol] 0.087 10*3/uL Normal 15-500 [facility] Comment on above: Performed By: #### 6 399 #### [facility] [id number] Fork Lift Mechanic: Alex Wong MD Eosinophils/100 WBC (Bld) 1.9 % Normal [facility] Comment on above: Performed By: #### 6 399 #### [facility]-[address], [address] [place] [address] Fork Lift Mechanic: Alex Wong MD Erythrocyte distribution width (RBC) [Ratio] 12.5 % Normal 11.0-15.0 [facility] Comment on above: Performed By: #### 6 399 #### [facility]-[address], [address] [place] [address] Fork Lift Mechanic: Alex Wong MD Hematocrit (Bld) [Volume fraction] 45.6 % Normal 34.0-46.0 [facility] Comment on above: Performed By: #### 6 399 #### [facility]-[address], [address] [place] [address] Fork Lift Mechanic: Alex Wong MD Hemoglobin (Bld) [Mass/Vol] 15.1 g/dL Normal 11.5-15.3 [facility] Comment on above: Performed By: #### 6 399 #### [facility]-[address], [address] [place] [address] Fork Lift Mechanic: Alex Wong MD Lymphocytes (Bld) [#/Vol] 1.578 10*3/uL Normal 2520-4233 [facility] Comment on above: Performed By: #### 6 399 #### [facility]-[address], [address] [place] [address] Fork Lift Mechanic: Alex Wong MD Lymphocytes/100 WBC (Bld) 34.3 % Normal [facility] Comment on above: Performed By: #### 6 399 #### [facility]-[address], [address] [place] [address] Fork Lift Mechanic: Alex Wong MD MCH (RBC) [Entitic mass] 28.7 pg Normal 25.0-35.0 [facility] Comment on above: Performed By: #### 6 399 #### [facility]-[address], [address] [place] [address] Fork Lift Mechanic: Alex Wong MD MCHC (RBC) [Mass/Vol] 33.1 g/dL Normal 31.0-36.0 [facility] Comment on above: Performed By: #### 6 399 #### [facility] [address] Fork Lift Mechanic: Alex Wong MD MCV (RBC) [Entitic vol] 86.5 fL Normal 78.0-98.0 [facility] Comment on above: Performed By: #### 6 399 #### [facility] [address] Fork Lift Mechanic: Alex Wong MD Monocytes (Bld) [#/Vol] 0.359 10*3/uL Normal 200-900 [facility] Comment on above: Performed By: #### 6 399 #### [facility] [address] Fork Lift Mechanic: Alex Wong MD Monocytes/100 WBC (Bld) 7.8 % Normal [facility] Comment on above: Performed By: #### 6 399 #### [facility] [address] Fork Lift Mechanic: Alex Wong MD Neutrophils (Bld) [#/Vol] 2.535 10*3/uL Normal 0923-1154 [facility] Comment on above: Performed By: #### 6 399 #### [facility] [address] Fork Lift Mechanic: Alex Wong MD Neutrophils/100 WBC (Bld) 55.1 % Normal [facility] Comment on above: Performed By: #### 6 399 #### [facility] [address] Fork Lift Mechanic: Alex Wong MD Platelet mean volume (Bld) [Entitic vol] 11.7 fL Normal 7.5-12.5 [facility] Comment on above: Performed By: #### 6 399 #### [facility] [address] Fork Lift Mechanic: Alex Wong MD Platelets (Bld) [#/Vol] 279 10*3/uL Normal 140-400 [facility] Comment on above: Performed By: #### 6 399 #### [facility]-[address], [address] [place] [address] Fork Lift Mechanic: Alex Wong MD RBC (Bld) [#/Vol] 5.27 10*6/uL High 3.80-5.10 [facility] Comment on above: Performed By: #### 6 399 #### [facility]-[address], [address] [place] [address] Fork Lift Mechanic: Alex Wong MD WBC (Bld) [#/Vol] 4.6 10*3/uL Normal 4.5-13.0 [facility] Comment on above: Performed By: #### 6 399 #### [facility]-[address], [address] [place] [address] Fork Lift Mechanic: Alex Wong MD TSHon 07-17-2019 TSH Qn 2.07 m[IU]/L Normal [facility] Comment on above: Result Comment: Refe rence Range 1-19 Years 0.50-4.30 Ranges First trimester 0.26-2.66 Second trimester 0.55-2.73 Third trimester 0.43-2.91 Performed By: #### 6 399 #### [facility] [address] Fork Lift Mechanic: Alex Wong MD Laboratory - Chemistry and C hemistry - challengeon 07-16-2019 TSH Qn 2.07 m[IU]/L Normal [employer] [facility], [facility] [employer] Laboratory - Hematology and Cell countson 07-16-2019 Basophils (Bld) [#/Vol] 0.041 10*3/uL Normal 0 - 200 {cells/uL} [employer] Basophils/100 WBC (Bld) 0.9 % Normal [employer], [facility].; [employer] Eosinophils (Bld) [#/Vol] 0.087 10*3/uL Normal 15 - 500 {cells/uL} [employer] Eosinophils/100 WBC (Bld) 1.9 % Normal [facility]; [facility], [facility] Erythrocyte distribution width (RBC) [Ratio] 12.5 % Normal 11.0 - 15.0 % [facility], [facility] Hematocrit (Bld) [Volume fraction] 45.6 % Normal 34.0 - 46.0 % [facility].; [facility], [facility] Hemoglobin (Bld) [Mass/Vol] 15.1 g/dL Normal 11.5 - 15.3 g/dL [facility].; [facility], [facility] Lymphocytes (Bld) [#/Vol] 1.578 10*3/uL Normal 1200 - 5200 {cells/uL} [facility].; [facility], [facility] Lymphocytes/100 WBC (Bld) 34.3 % Normal [facility]; [facility], [facility] MCH (RBC) [Entitic mass] 28.7 pg Normal 25.0 - 35.0 pg [facility].; [facility], [facility]. MCHC (RBC) [Mass/Vol] 33.1 g/dL Normal 31.0 - 36.0 g/dL [facility].; [facility], [facility]. MCV (RBC) [Entitic vol] 86.5 fL Normal 78.0 - 98.0 fL [facility].; [facility], [facility] Monocytes (Bld) [#/Vol] 0.359 10*3/uL Normal 200 - 900 {cells/uL} [facility].; [facility], [facility]. Monocytes/100 WBC (Bld) 7.8 % Normal [facility].; [facility], [facility]. Neutrophils (Bld) [#/Vol] 2.535 10*3/uL Normal 1800 - 8000 {cells/uL} [facility].; [facility], [facility]. Neutrophils/100 WBC (Bld) 55.1 % Normal [facility].; [facility], [facility] Platelet mean volume (Bld) [Entitic vol] 11.7 fL Normal 7.5 - 12.5 fL [facility].; [employer] [facility]. Platelets (Bld) [#/Vol] 279 10*3/uL Normal 140 - 400 [facility].; [employer] RBC (Bld) [#/Vol] 5.27 10*6/uL Abnormal 3.80 - 5.10 {Million/u L} [place] [employer] WBC (Bld) [#/Vol] 4.6 10*3/uL Normal 4.5 - 13.0 [place] [employer] Discharge Summaryon 05-23-19 18 Medical Physiologist Authentication Interface Message Text Surgery Discharge SummaryName: Mary Ann Reid#: [id number] : 2000Room #: 6214/01 Age/Sex: 16 y.o. femaleAdmit Date: 05/21/2017 Admitting: EVELIO Caballeroischarge Date: 05/22/2017Attending: Alexia Chandra MDFinal Diagnosis:Biliary dyskinesiaSignificant Findings (Problem List):Active Hospital Problems Diagnosis Biliary dyskinesiaResolved Hospital Problems Diagnosis Date ResolvedNo resolved problems to display.Reason for Hospitalization:Biliary dyskinesiaDischarge Condition:GoodHospital Course (Care, treatment and services provided):Mary Ann Reid is a 16 y.o. 4 m.o. female with an 18-month history of biliarydyskinesia with gallbladder disease. Patient underwent a laparoscopiccholecystectomy with cholangiogram on 05/21/2017. There were no complicationsduring surgery.Significant Imaging Results:NoneTreatments and procedures with outcomes:Procedure(s):LAPAROSCO PIC CHOLECYSTECTOMY WITHOUT CHOLANGIOGRAM: no complicationsDisposition:She was discharged to home.Discharge Medications:Medication ListSTART taking these medications Morning Afternoon Evening Bedtime As Neededibuprofen 200 MG tabletTake 2 Tabs (400 mg) by mouth every 6 hours as needed for Pain Take with meals.Commonly known as: MOTRIN [ ] [ ] [ ] [ ] [ ]oxyCODONE (immediate release) 5 MG tabletTake 1 Tab (5 mg) by mouth every 6 hours as needed for Pain for up to 5 dosesDays' supply: 3 daysCommonly known as: ROXICODONE [ ] [ ] [ ] [ ] [ ]CONTINUE taking these medications which HAVE NOT changed at this visit Morning Afternoon Evening Bedtime As Neededomeprazole 40 MG capsuleTake 1 Cap (40 mg) by mouth dailyCommonly known as: PriLOSEC [ ] [ ] [ ] [ ] [ ]STOP taking these medicationsMULTI-VITAMIN DAILY POWhere to Get Your MedicationsYou can get these medications from any pharmacyBring a paper prescription for each of these medications oxyCODONE (immediate release) 5 MG tabletYou don't need a prescription for these medications ibuprofen 200 MG tabletDischarge Instructions:Instructions/Follo w Up Future Labs/Procedures Expected by Expires Follow Up Appointments To Be Scheduled As directed Comments: Follow up in 3-[address] Chandra or nurse practitionerCal [phone] to make appointment, and with any questions or concerns youmay haveDischarge Orders Future Labs/Procedures Expected by Expires Activity as tolerated As directed Comments: No vigorous activity for 2 weeks, then slowly return to normal activity Call MD For: As directed Comments: Fever greater than 101.5Increased abdominal pain or distensionPersistent vomitingRedness, drainage from surgical sites May resume school activities: As directed Comments: May resume school at parent/guardian discretion Patient may shower As directed Comments: No immersion bath or swimming for 2 weeks Regular diet for age As directed Wound care: Minimal Care is Needed As directed Comments: Surgical glue or steri strips will peel off over next few weeksSigned:BARB Duque-C310:44 AM Normal [facility] H&Cornelio 05-21-2017 Medical Physiologist Authentication Interface Message Text PRE-OP HISTORY AND PHYSICALDATE OF SERVICE: 05/21/2017ATTENDING PROVIDER: MITALI CaballeroURGICAL DIAGNOSIS: abd pain/ biliary dyskinesiaProposed surgical procedure: lap cholecystectomy without cholangiogram poss openCHIEF COMPLAINT: abd painHISTORY OF PRESENT ILLNESS:Mary Ann Reid is a 16 y.o. 4 m.o. female who presents today with a PMH of abdpain for about 18 months. The history is provided by the patient and mother aisha chart review for evaluation for surgical risk factors. Per the office note:chief complaint of Abdominal pain. Mary Ann began having abdominal pain in September2015. It initially was her LUQ and was an achy pain. It occurred 1-2x/week forseveral minutes. She talked to her PCP about it and the thought was that shecould be dehydrated. About 6 months later, her pain was now in her RUQ and hadsharp pain. It occurred 1-2x/week for several minutes, but over the next yearher pain became daily. Her pain also worsens with eating (fried foods, dairyproducts, and coconut oil) and running. In September of 2016, she went back to [facility] where an abdominal CT was ordered and was negative. She was advised toincrease her fiber intake. Since November of 2016, she had a RUQ US which showednormal anatomy aisha HIDA scan which showed a mildly decreased ejection fractionof 33%. Referred to [facility] and had her first appointment on 03/05/2017. Omeprazolewas started at that time and labs were drawn (CBC, BMP, HFP, CRP, GGT, ESR, TTG,and total IgA). Her labs were unremarkable. A few weeks later, an EGD was doneand biopsies were negative. She had a GI appointment today where she had pain inher RUQ. She was then referred to the general surgery office and she was able shilpa seen today. She has had shoulder pain for the past few months. Since starting theomeprazole, her shoulder pain has improved (less frequent, but same severity). No fever. No nausea and emesis. No dysuria. Yes: diarrhea. She's been havingdiarrhea for the past 1.5 months. She describes having loose BMs once a day.When she eats, she will occasionally have to run to the bathroom. No abdominaltrauma or sick contacts.MEDICAL/SURGICAL HISTORY:Past Medical History:Diagnosis Date Abdominal pain Gastroesophageal reflux disease Knee pain Wears glassesPast Surgical History:Procedure Laterality Date NO PAST SURGICAL HISTORY MT ANESTH,UGI ENDOSCOPY UPPER GASTROINTESTINAL ENDOSCOPY N/A 03/21/2017 ENDOSCOPY UPPER (FLEXIBLE) with biopsies [place] [facility] [place] 02/2017Past hospitalizations: noDRUG/FOOD ALLERGIES:No Known AllergiesMEDICATIONS:Prescripti ons Prior to AdmissionMedication Sig Dispense Refill Last Dose omeprazole (PRILOSEC) 40 MG capsule Take 1 Cap (40 mg) by mouth daily 30 Cap at 0700 [DISCONTINUED] Multiple Vitamin (MULTI-VITAMIN DAILY PO) Take by mouth dailyTaking at Unknown timeANESTHESIA HISTORY:Difficulty with anesthesia? NoFamily history of difficulty with anesthesia? noSigns/symptoms of HENNA? noHEME/BLEEDING HISTORY:History of bleeding issues in patient? noBleeding problems in family? noHistory of anemia in patient? noSickle Cell issues in patient or family? N/AREVIEW OF SYSTEMS:Comprehensive review of systems: History obtained from Mother, chart review andthe patient.General ROS: negativeCardiovascular ROS: no chest pain or dyspnea on exertionGastrointestinal ROS: positive for - abdominal pain, diarrhea andnausea/vomitingUrinary ROS: no dysuria, trouble voiding or hematuriaA complete ROS was performed. Pertinent positives have been documented above orare in the HPI. All other systems were negative.Recent Illnesses? noBIRTH HISTORY:, labor and delivery unremarkable. Patient was discharged home withmother.DEVELOPMENTAL HISTORY:Milestones: All met as expectedIMMUNIZATIONS:Stated as up to date, no records availableSOCIAL/FAMILY HISTORY:Mary Ann lives with parents and one sisterSpecial Needs: NonePreferred Language: EnglishDaycare: NoSchool: Yes: 9th gradeSmoking/Alcohol/Drug Use or Exposure: NoFamily HistoryProblem Relation Age of Onset High Cholesterol Mother Hypertension Father Diabetes Other Heart Attack Other Hypertension Other Osteoarthritis Other Rheum Arthritis Other Gallbladder Disease Maternal Aunt Colon Polyps Paternal Grandfather Colon Cancer Neg Hx Celiac Disease Neg Hx Crohn's Disease Neg Hx Constipation Neg Hx Eosinophilic Esophagitis Neg Hx Gastroesophageal reflux Neg Hx Irritable Bowel Syndrome Neg Hx Hirschsprung's disease Neg Hx Ulcerative Colitis Neg Hx Stomach Ulcer(s) Neg Hx Anesth Problems Neg Hx Bleeding Prob Neg Hx Post-op N/V Neg HxVITAL SIGNS:Vitals: 05/21/17 1306BP: 118/76Pulse: 81Resp: 17Temp: 37.2 C (99 F)Ht Readings from Last 1 Encounters:05/21/17 166.5 cm (75 %, Z= 0.66) Growth percentiles are based on [facility] 2-20 Years data.Wt Readings from Last 1 Encounters:05/21/17 65 kg (85 %, Z= 1.02) Growth percentiles are based on CDC 2-20 Years data.Body mass index is 23.45 kg/m .81 %ile (Z= 0.88) based on CDC 2-20 Years BMI-for-age data using vitals from05/21/2017.SpO2 Readings from Last 3 Encounters:05/21/17 100%03/21/17 99%03/21/17 100%PHYSICAL EXAM:General: Patient appears healthy, well developed, well nourished, in no acutedistressHead: atraumatic and normocephalicNeuro: alert, oriented appropriately for ageEyes: pupils equal, round, and reactive to lightEars: canals clear, normal, tragus nontenderNose: nares patent without dischargeDentition: intactThroat: oropharynx is clearNeck: suppleChest: breath sounds are clear to auscultation bilaterally without rales,rhonchi, or wheezesCardiac: regular rate and rhythm, normal S1 and S2, peripheral pulses strong andequalAbdomen: abdomen is soft, nontender, and nondistended without hepatosplenomegalyor masses and bowel sounds are normalBack: deferredGU Female: deferredGU Male: naSkin: pink, warm, well perfusedLymphatic: no adenopathy notedMusculoskeletal: normal tone, moves all extremities equally with full range ofmotionDIAGNOSTIC STUDIES REVIEWED:The following lab results have been ordered/reviewed.HCGCalciumDate Value Ref Range Uquxsf9403/05/2017 9.3 7.6 - 11.0 mg/dL FinalCarbon DioxideDate Value Ref Range Vuenye5503/05/2017 25.4 22.0 - 29.0 mEq/L FinalChlorideDate Value Ref Range Igjmwf9003/05/2017 103 96 - 108 mEq/L FinalCreatinineDate Value Ref Range Xgexse3103/05/2017 0.66 0.50 - 1.00 mg/dL Final Comment: Premature 0.3-1.0 mg/dLGlucoseDate Value Ref Range Bmaqlz1303/05/2017 87 70 - 99 mg/dL Final Comment: Criteria for Diagnosis of Diabetes(Effective 08/01/10):Fasting specimen (no caloric intake for at least 8 hours). <100 mg/dl Normal 100-125 mg/dl Increased Risk for Diabetes >125 mg/dl Diagnostic for DiabetesRandom Glucose (any time of day without regard to last meal). >=200 mg/dl plus Classic Symptoms of DiabetesPotassiumDate Value Ref Range Gmyvdn5803/05/2017 4.1 3.3 - 5.1 mEq/L FinalSodiumDate Value Ref Range Zdipxd5903/05/2017 139 133 - 145 mEq/L FinalBUNDate Value Ref Range Vachyf7303/05/2017 12 4 - 19 mg/dL FinalRBCDate Value Ref Range Zwernu6703/05/2017 5.11 (H) 4.10 - 4.80 10E12/L FinalRDWDate Value Ref Range Obqxss2103/05/2017 12.3 0.0 - 14.4 % FinalWBCDate Value Ref Range Clbcbo5803/05/2017 6.0 4.5 - 13.0 10E9/L FinalHematocritDate Value Ref Range Vjjxct9503/05/2017 45.8 37.0 - 46.0 % FinalHemoglobinDate Value Ref Range Xdpuno4703/05/2017 14.9 12.0 - 15.0 g/dl FinalMCHDate Value Ref Range Iqaxhs4303/05/2017 29.2 25.0 - 35.0 pg FinalMCHCDate Value Ref Range Pxphlh2303/05/2017 32.5 31.0 - 37.0 % FinalMCVDate Value Ref Range Fqjlef9203/05/2017 89.6 78.0 - 96.0 fl FinalMPVDate Value Ref Range Gnqbyx1803/05/2017 8.1 fl Final Comment: MPV is plateletrange and agedependent% EosinophilsDate Value Ref Range Zllbgu8703/05/2017 2 0 - 3 % FinalLymphocytesDate Value Ref Range Ircivd0203/05/2017 22 (L) 25 - 45 % Final% MonocytesDate Value Ref Range Pjavtb7103/05/2017 7 (H) 3 - 6 % FinalHemoglobinDate Value Ref Range Gkjpwo6403/05/2017 14.9 12.0 - 15.0 g/dl FinalNo results found for: APTT, INRNo results found for: TSH, E1YUJHV, N2CXUXA, THYROIDABHCG,UrineDate Value Ref Range Aedlve1305/21/2017 Negative mIU/mL Final Comment: Non females and males-Negative females-PositiveNo results found for: HCGSERUMASSESSMENT:Patient Active Problem ListDiagnosis Abdominal pain, generalized Nausea without vomiting Right upper quadrant abdominal painMary Ann Reid is a 16 y.o. 4 m.o. female with hx of biliary dyskinesia withgall bladder disease. She presents today for a history and physical for theabove mentioned surgical procedure in good condition. She has the following riskfactors: none. Based on this evaluation for surgical risk factors and review ofnecessary clinical studies (if indicated), she has no other past medical historyor past surgical history that would impact this procedure.PLAN:Surgery as scheduledPain management teamPatient/family educationNutritional managementHemodynamic monitoringRespiratory monitoringOTHER FINDINGS OR COMMENTS:Jewelry removed? Criss Ck, CNP05/21/20171:07 PM Normal [facility] HCG,Urineon 05-21-2017 HCG.beta subunit ( test) Ql (U) Negative Normal [facility] Comment on above: Order Comment: If ur ine specimen unobtainable, please obtain serum HCG. Result Comment: Nonp regnant females and males-Negative females-Positive Performed By: #### C BC ####[address] [phone] Surgical Pathology Teston Surgical Pathology Test SEE BELOW Normal [facility] Comment on above: Result Comment: AP Ryder DIAGNOSIS: Gallbladder, cholecystectomy: Mild chroniccholecystitis.SPECIMEN:GALLBLADDERDATE OF SURGERY: 05/21/2017CLINICAL INFORMATION: Biliary dyskinesia.GROSS DESCRIPTION: Received in formalin is a gallbladder that measures6.5 x 2.7 x 1.1 cm. The surface is smooth and mccormick-green. Sectioningshows a green-black mucosa with viscous green bile. No evidence ofstones or masses on sectioning. Doping Supervisor sections submitted inone cassette.MICROSCOPIC EXAMINATION: Sections show gallbladder wall with focalcongestion and rare chronic inflammatory infiltrate. Rare focalevidence of superficial Nsdbyelqrl-Yfmhoua-ecas sinus formation in theslides examined. Deeper levels obtained. BOB HUNTER, DO 05/28/2017 Performed By: #### C BC ####[address] [phone] Progress Noteon 04-20-2017 Medical Physiologist Authentication Interface Message Text Mary Ann Reid is here for follow-up for: Abdominal PainHistory of Present IllnessThibrigette is a 16 year old female being seen today in follow up gastroenterologyclinic for her abdominal pains. She had an EGD that was normal and she feelslike the omeprazole has helped her back a pain a little bit. Other than that hersymptoms are the same, happening with eating and she gets relief 30-60 minutesafter the meal depending on what food and how much food she had consumed.Abdominal pain- Mainly pains on both sides, the same, omeprazole has taken awaysome sholder pains but not everything, pains right after eating and within 30 -1 hour depending on what food and then goes awayVomiting- none, still nauseaDiet- appetite normal, eating a little betterBM- running to the bathroom with minutes of certain foods, diarrhea, worse withbeef and higher fat foodsNo chest painsShe is accompanied by her mother.Abdominal PainSymptoms include diarrhea, heartburn and nausea. The onset has been chronic.The pattern is constant, continuous, intermittent and recurrent. The course isrecurrent. Mary Ann's symptoms are described as fluctuating, moderate andinterfering with normal daily activities. The symptoms are characterized assharp. The location of the pain is right upper quadrant. The pain radiates tothe back. (Shoulder pain) Her symptoms are aggravated by meals. Her symptoms are relieved by bowelmovements. The patient is not experiencing bloating, burping, constipation,flatus, headaches, interference with activity, vomiting and weight loss.Patient complains of diarrhea. Patient denies constipation.She has 2 stools per day. Her stool is loose and soft. There is no blood inher stool. Soiling noted: none.Patient receives nutrition orally.Mary Ann's current eating habits are having a decreased appetite.Her diet includes a well balanced diet.Previous interventions include dietary changes.Medications include proton pump inhibitors.Previously run tests include EGD.Past Medical HistoryPast Medical History:Diagnosis Date Knee pain Wears glassesPast Surgical HistoryPast Surgical History:Procedure Laterality Date NO PAST SURGICAL HISTORY UPPER GASTROINTESTINAL ENDOSCOPY N/A 03/21/2017 ENDOSCOPY UPPER (FLEXIBLE) [facility]ergiesNo Known AllergiesMedicationsOutpatient Encounter Prescriptions as of 04/20/2017Medication Sig Dispense Refill Multiple Vitamin (MULTI-VITAMIN DAILY PO) Take by mouth daily omeprazole (PRILOSEC) 40 MG capsule Take 1 Cap (40 mg) by mouth daily 30 Cap 3No facility-administered encounter medications on file as of 04/20/2017.Family Medical HistoryFamily HistoryProblem Relation Age of Onset High Cholesterol Mother Hypertension Father Diabetes Other Heart Attack Other Hypertension Other Osteoarthritis Other Rheum Arthritis Other Gallbladder Disease Maternal Aunt Colon Polyps Paternal Grandfather Colon Cancer Neg Hx Celiac Disease Neg Hx Crohn's Disease Neg Hx Constipation Neg Hx Eosinophilic Esophagitis Neg Hx Gastroesophageal reflux Neg Hx Irritable Bowel Syndrome Neg Hx Hirschsprung's disease Neg Hx Ulcerative Colitis Neg Hx Stomach Ulcer(s) Neg HxSocial HistorySocial HistorySocial History Marital status: Single Spouse name: N/A Number of children: N/A Years of education: N/ASocial History Main Topics Smoking status: Never Smoker Smokeless tobacco: Never Used Alcohol use No Drug use: No Sexual activity: Not AskedOther Topics Concern NoneSocial History Narrative NoneDiet Current Diet? regular diet Patient drinks milk, eats cheese, ice cream? Yes Do dairy products cause problems? No Does patient have dietary restrictions? No Patient on nutritional supplements? No Patient on tube feeds? NoSocial History Who lives in the household? mom, dad, sister Are there pets in the home? Yes Has patient traveled out of the country? No Water source for child? [facility] Water Has the patient ever been hospitalized? No Alternative meds, herbals, OTC meds and vitamins documented in medicationsection? NoReview of SystemsReview of SystemsConstitutional: Negative.HENT: Negative.Eyes: Positive for wears glasses.Respiratory: Negative.Cardiovascular: Negative.Endocrine: negativeGastrointestinal: Positive for abdominal pain and nausea.Genitourinary: Negative.Neurological: Positive for headaches.Musculoskeletal: Positive for joint pain and back pain (shoulder blades and upback of neck).Skin: Negative.Allergy/Immune: allergic/immunologic negativeHematology: Negative.Physical ExaminationVitals: 04/20/17 0943BP: 133/79Pulse: 61BP Readings from Last 2 Encounters:04/20/17 133/ 117/59Weight - Scale: 63.4 kgHeight: 166 cmBody mass index is 23.01 kg/m .Physical ExamConstitutional: She appears well-developed. She is active.Eyes: Her conjunctivae are normal.Neck: Theres is no no neck adenopathy.Cardiovascular: No murmur heard.Pulmonary/Chest: Breath sounds normal.Abdominal: Her abdomen is soft. She exhibits no distension. Bowel sounds arenormal. There is tenderness in the epigastric area. There is no CVA tendernesspresent.There is no hepatosplenomegaly.Neurological : She is alert.Skin: Skin is warm.Lab ResultsPath Report:Surgical Pathology TestDate Value Ref Range Yefmxq1603/21/2017 SEE BELOW NA Final Comment: FINAL DIAGNOSIS:A - Esophageal biopsies, no diagnostic pathologyB - Gastric biopsies, no diagnostic pathologyC - Duodenal biopsies, no diagnostic pathologySPECIMEN:A. ESOPHAGEAL BIOPSY B. STOMACH, BIOPSY C. BOWEL, BIOPSY- small bowelDATE OF SURGERY: 03/21/2017CLINICAL INFORMATION: Abdominal pain, generalizedGROSS DESCRIPTION: Three biopsies are submitted fixed as follows:A. Esophagus. Two white mucosal fragments measuring 0.6 x 0.2 x 0.1 cm.B. Stomach. Three arreola mucosal fragments measuring 1.2 x 0.2 x 0.1 cm.C. Small bowel. Four arreola mucosal fragments measuring 1.0 x 0.2 x 0.1cm.MICROSCOPIC EXAMINATION: Each biopsy specimen is evaluated at multiplelevels. A shows stratified squamous mucosa. There is no elongation of retepegs or expansion of the basal layer. No intraepithelial eosinophilsare present. B shows antral and fundic mucosa. The glands are usualin appearance and there is no mucosal ulceration. No significantinflammation is present in the lamina propria. No Helicobacter isidentified. C shows duodenum. The villi are usual in appearance witha villus to gland ratio of 4:1. There is no significant chronic mucosalinflammation. There is no acute inflammation or granulomata. JIMMY CAMARENA MD 03/23/2017Imaging FindingsNo results found.AssessmentThis is a 16 year old female with RUQ and epigastric pains, nausea and diarrheaafter eating. Her EGD was normal, not much relief on PPI, normal RUQ ultrasoundbut HIDA scan shows delayed ejection fraction.PlanPatient InstructionsContinue the omeprazole dailyMake apt with pediatric surgery to discuss gallbladder HIDA scanned into mediarecordsFollow up as needed, if she get gallbladder out and that fixes problem then wecan wean off omeprazole after surgery Normal [facility] HCG,Urineon 03-21-2017 HCG.beta subunit ( test) Ql (U) Negative Normal [facility] Comment on above: Result Comment: Nonp regnant females and males-Negative females-Positive Performed By: #### C BC ####[address] [phone] Surgical Pathology Teston Surgical Pathology Test SEE BELOW Normal [facility] Comment on above: Result Comment: AP Ryder DIAGNOSIS:A - Esophageal biopsies, no diagnostic pathologyB - Gastric biopsies, no diagnostic pathologyC - Duodenal biopsies, no diagnostic pathologySPECIMEN:A. ESOPHAGEAL BIOPSY B. STOMACH, BIOPSY C. BOWEL, BIOPSY- small bowelDATE OF SURGERY: 03/21/2017CLINICAL INFORMATION: Abdominal pain, generalizedGROSS DESCRIPTION: Three biopsies are submitted fixed as follows:A. Esophagus. Two white mucosal fragments measuring 0.6 x 0.2 x 0.1 cm.B. Stomach. Three arreola mucosal fragments measuring 1.2 x 0.2 x 0.1 cm.C. Small bowel. Four arreola mucosal fragments measuring 1.0 x 0.2 x 0.1cm.MICROSCOPIC EXAMINATION: Each biopsy specimen is evaluated at multiplelevels. A shows stratified squamous mucosa. There is no elongation of retepegs or expansion of the basal layer. No intraepithelial eosinophilsare present. B shows antral and fundic mucosa. The glands are usualin appearance and there is no mucosal ulceration. No significantinflammation is present in the lamina propria. No Helicobacter isidentified. C shows duodenum. The villi are usual in appearance witha villus to gland ratio of 4:1. There is no significant chronic mucosalinflammation. There is no acute inflammation or granulomata. JIMMY CAMARENA MD 03/23/2017 Performed By: #### C BC ####[address] [phone] Immunoglobulin Aon 8 Globulin 203 mg/dL Normal 47-249 [facility] Comment on above: Performed By: #### C BC ####[address] [phone] Transglutaminase IgAon 03-07 Transglutaminase IgA <20.00 Normal 0.00-20.00 [facility] Comment on above: Result Comment: Nega tive: < 20 UnitsWeak Positive: 20-30 UnitsModerate to Strong Positive: > 30 Units Performed By: #### C BC ####[address] [phone] Amylaseon 03-05-2017 Amylase 69 U/L Normal 28-100 [facility] Comment on above: Performed By: #### A MYL ####[address] [phone] Basic Metabolic Panelon Calcium 9.3 mg/dL Normal 7.6-11.0 [facility] Comment on above: Performed By: #### B MP ####[address] [phone] Chloride 103 mmol/L Normal 96-108 [facility] Comment on above: Performed By: #### B MP ####[address] [phone] CO2 25.4 mmol/L Normal 22.0-29.0 [facility] Comment on above: Performed By: #### B MP ####[address] [phone] Creatinine 0.66 mg/dL Normal 0.50-1.00 [facility] Comment on above: Result Comment: Narayan ature 0.3-1.0 mg/dL Performed By: #### B MP ####[address] [phone] Glucose mass conc 87 mg/dL Normal 70-99 [facility] Comment on above: Result Comment: Florinda webb for Diagnosis of Diabetes(Effective 08/01/10):Fasting specimen (no caloric intake for at least 8 hours). <100 mg/dl Normal 100-125 mg/dl Increased Risk for Diabetes >125 mg/dl Diagnostic for DiabetesRandom Glucose (any time of day without regard to last meal). >=200 mg/dl plus Classic Symptoms of Diabetes Performed By: #### B MP ####[address] [phone] Potassium molar conc 4.1 mmol/L Normal 3.3-5.1 [facility] Comment on above: Performed By: #### B MP ####[address] [phone] Sodium 139 mmol/L Normal 133-145 [facility] Comment on above: Performed By: #### B MP ####[address] [phone] Urea nitrogen 12 mg/dL Normal 4-19 [facility] Comment on above: Performed By: #### B MP ####[address] [phone] C-Reactive Proteinon 018 C reactive protein (CRP) mg/L Normal 0.0-1.0 [facility] Comment on above: Result Comment: CRP determinations in neonates should be interpreted withcaution. CRP may be elevated in circumstances not associatedwith inflammation (e.g. difficult delivery, pneumothorax). Inpremature neonates CRP levels may not rise to abnormal levelseven if sepsis is present; some speculate that immature liverfunction decreases the ability to generate a CRP response. Performed By: #### C RP ####[address] [phone] Complete Blood Counton 03-05 Differential Complete Manual Normal [facility] Comment on above: Performed By: #### C BC ####[facility] [phone] Erythrocyte distribution width Auto Ratio (RBC) 12.3 % Normal 0.0-14.4 [facility] Comment on above: Performed By: #### C BC ####[address] [phone] Erythrocytes (RBC) 5.11 10E12/L High 4.10-4.80 [facility] Comment on above: Performed By: #### C BC ####[address] [phone] Hematocrit (HCT) 45.8 % Normal 37.0-46.0 [facility] Comment on above: Performed By: #### C BC ####[address] [phone] Hemoglobin mass conc (Bld) 14.9 g/dL Normal 12.0-15.0 [facility] Comment on above: Performed By: #### C BC ####[address] [phone] MCH 29.2 pg Normal 25.0-35.0 [facility] Comment on above: Performed By: #### C BC ####[address] [phone] MCHC mass conc (RBC) 32.5 % Normal 31.0-37.0 [facility] Comment on above: Performed By: #### C BC ####[address] [phone] MCV 89.6 fL Normal 78.0-96.0 [facility] Comment on above: Performed By: #### C BC ####[address] [phone] Platelet mean volume (PMV) 8.1 fL Normal [facility] Comment on above: Result Comment: MPV is plateletrange and agedependent Performed By: #### C BC ####[address] [phone] Platelets 263 10*3/uL Normal 150-450 [facility] Comment on above: Performed By: #### C BC ####[address] [phone] WBC (Leukocytes) 6.0 10*3/uL Normal 4.5-13.0 [facility] Comment on above: Performed By: #### C BC ####[address] [phone] ESRon 03-05-2017 ESR Sed Rate 2 mm Normal [facility] Comment on above: Performed By: #### S RATE ####[address] [phone] Interpretation ----- Normal [facility] Comment on above: Result Comment: Male FemaleChild 0-13 Child 0-13Adult 0- 9 Adult 0-20 Performed By: #### S RATE ####[address] [phone] GGTon 03-05-2017 GGT 11 U/L Normal 2-42 [facility] Comment on above: Performed By: #### G GT ####[address] [phone] Hepatic Panelon 03-05-2017 Alanine aminotransferase (ALT) 13 U/L Normal 0-31 [facility] Comment on above: Performed By: #### L IVER ####[address] [phone] Albumin 4.5 g/dL Normal 3.2-4.5 [facility] Comment on above: Performed By: #### L IVER ####[facility] of [address] [phone] Alkaline phosphatase (ALP) 70 U/L Normal 47-119 [facility] Comment on above: Performed By: #### L IVER ####[facility] of [address] [place], [place] [phone] Aspartate aminotransferase (AST) 19 U/L Normal 0-31 [facility] Comment on above: Performed By: #### L IVER ####[facility] of [address] [phone] Bili,Conjugated 0.1 mg/dL Normal 0.0-0.7 [facility] Comment on above: Performed By: #### L IVER ####[facility] of [address] [phone] Bili,Total 0.5 mg/dl Normal 0.0-1.0 [facility] Comment on above: Result Comment: Narayan ature : 1 Day 1.0-6.0 mg/dl 2 Day 6.0-8.0 mg/dl 3-5 Day 10.0-15.0 mg/dl Performed By: #### L IVER ####[facility] of [address] [phone] Protein 7.4 g/dL Normal 5.9-8.4 [facility] Comment on above: Performed By: #### L IVER ####[facility] of [address] [phone] Lipaseon 03-05-2017 Lipase 21 U/L Normal 16-63 [facility] Comment on above: Performed By: #### L IPAS ####[facility] of [address] [phone] Manual Differentialon 2017 Cell Morphology Normal Normal [facility] Comment on above: Performed By: #### S CAN ####[facility] of [address] [phone] Eosinophils/100 leukocytes 2 % Normal 0-3 [facility] Comment on above: Performed By: #### S CAN ####[facility] of [address] [phone] Lymphocytes/100 leukocytes 12 % High 0-8 [facility] Comment on above: Performed By: #### S CAN ####[facility] of [address] [phone] Lymphocytes/100 leukocytes 22 % Low 25-45 [facility] Comment on above: Performed By: #### S CAN ####[facility] of [address] [phone] Metamyelocytes 0 % Normal 0-0 [facility] Comment on above: Performed By: #### S CAN ####[facility] of [address] [phone] Metamyelocytes/10 0 leukocytes 0 % Normal 0-0 [facility] Comment on above: Performed By: #### S CAN ####[facility] of [address] [phone] Monocytes/100 leukocytes 7 % High 3-6 [facility] Comment on above: Performed By: #### S CAN ####[facility] of [address] [phone] Neutrophils 3.4 Normal [facility] Comment on above: Performed By: #### S CAN ####[facility] of [address] [phone] Neutrophils band/100 leukocytes 3 % Low 5-11 [facility] Comment on above: Performed By: #### S CAN ####[facility] of [address] [phone] Promyelocytes 0 % Normal 0-0 [facility] Comment on above: Performed By: #### S CAN ####[facility] [place] [phone] Segmented Neutrophils/100 leukocytes 54 % Normal 34-64 [facility] Comment on above: Performed By: #### S CAN ####[facility] of [place] [phone] Progress Noteon 03-05-2017 Medical Physiologist Authentication Interface Message Text Mary Ann Reid is here for consultation at the request of Jimmy Allen MD for:Abdominal PainHistory of Present IllnessThibrigette is a 16 year old female being seen today in gastroenterology clinic for herabdominal pains and nausea. This has been going on for 1.5 years and has gottenworse. It all started with sharp pains on the left and then moved to the rightsides and was preventing her form eating, and then 2-3 months it startedspreading to right shoulder blade and and up neck.Vomiting- none, some regurgitation and worse with milk, and nausea most of thetime she eatDiet- appetite decreased, and not wanting to eatBM- daily stools, no diarrhea, no blood, normal, not hard stoolsAbdominal pains- right sides and left sides pains and always goes up intoshoulder, happening 30 in to 1 hours after eating, and lasts 30 min to 1 hourand then goes away until the next mealNo extraintestinal symptoms except increase in headachesShe is accompanied by her mother.Abdominal PainSymptoms include bloating, headaches, interference with activity and nausea.The onset has been gradual. The pattern is constant, continuous and persistent.The course is worsening. Yoanas symptoms are described as fluctuating,moderate, interfering with normal daily activities and interfering with school.The symptoms are characterized as sharp and dull ache. Location: right and leftsided. The pain radiates to the back. (Right shoulder) Her symptoms areaggravated by meals, dairy and fatty foods. Her symptoms are relieved bynothing. The patient is not experiencing burping, constipation, diarrhea,flatus, heartburn, vomiting and weight loss. Patient denies diarrhea andconstipation.She has 1 stools per day. Her stool is soft. There is no blood in her stool.Soiling noted: none.Patient receives nutrition orally.Mary Ann's current eating habits are having a decreased appetite.Current diet: she is nauseated and does not have much of an appetite.Previous interventions include none.Medications include none.Previously run imaging tests: according to family she has had a CT scan,ultrasound and HIDA scan and US RUQ (liver/gallbladder).Past Medical HistoryPast Medical History:Diagnosis Date Knee pain Wears glassesPast Surgical HistoryPast Surgical History:Procedure Laterality Date NO PAST SURGICAL HISTORYAllergiesNo Known AllergiesMedicationsOutpatient Encounter Prescriptions as of 03/05/2017Medication Sig Dispense Refill Multiple Vitamin (MULTI-VITAMIN DAILY PO) Take by mouth daily IBUPROFEN PO Take by mouthNo facility-administered encounter medications on file as of 03/05/2017.Family Medical HistoryFamily HistoryProblem Relation Age of Onset High Cholesterol Mother Hypertension Father Diabetes Other Heart Attack Other Hypertension Other Osteoarthritis Other Rheum Arthritis Other Gallbladder Disease Maternal Aunt Colon Polyps Paternal Grandfather Colon Cancer Neg Hx Celiac Disease Neg Hx Crohn's Disease Neg Hx Constipation Neg Hx Eosinophilic Esophagitis Neg Hx Gastroesophageal reflux Neg Hx Irritable Bowel Syndrome Neg Hx Hirschsprung's disease Neg Hx Ulcerative Colitis Neg Hx Stomach Ulcer(s) Neg HxSocial HistorySocial HistorySocial History Marital status: Single Spouse name: N/A Number of children: N/A Years of education: N/ASocial History Main Topics Smoking status: Never Smoker Smokeless tobacco: Never Used Alcohol use None Drug use: Unknown Sexual activity: Not AskedOther Topics Concern NoneSocial History Narrative NoneDiet Current Diet? regular diet Patient drinks milk, eats cheese, ice cream? Yes Do dairy products cause problems? No Does patient have dietary restrictions? No Patient on nutritional supplements? No Patient on tube feeds? NoSocial History Who lives in the household? mom, dad, sister Are there pets in the home? Yes Has patient traveled out of the country? No Water source for child? [place] Has the patient ever been hospitalized? No Alternative meds, herbals, OTC meds and vitamins documented in medicationsection? NoReview of SystemsReview of SystemsConstitutional: Negative.HENT: Negative.Eyes: Positive for wears glasses.Respiratory: Negative.Cardiovascular: Negative.Endocrine: negativeGastrointestinal: Positive for abdominal pain and nausea.Genitourinary: Negative.Neurological: Positive for headaches.Musculoskeletal: Positive for joint pain and back pain (shoulder blades and upback of neck).Skin: Negative.Allergy/Immune: allergic/immunologic negativeHematology: Negative.Physical ExaminationThere were no vitals filed for this visit.BP Readings from Last 2 Encounters:05/11/16 117/ 123/59Weight - Scale: 62.4 kgHeight: 162.2 cmBody mass index is 23.72 kg/m .Physical ExamConstitutional: She appears well-developed. She is active.Eyes: Her conjunctivae are normal.Neck: Theres is no no neck adenopathy.Cardiovascular: No murmur heard.Pulmonary/Chest: Breath sounds normal.Abdominal: Her abdomen is soft. She exhibits no distension. Bowel sounds arenormal. There is no tenderness. There is no CVA tenderness present.There is nohepatosplenomegaly.Neurologic al: She is alert.Skin: Skin is warm.Lab ResultsImaging FindingsNo results found.AssessmentThis is a 16 year old female with right and left sided abdominal pains witheating that are now spreading to her right shoulder blade. She is also havingnausea and her appetite is decreasing.PlanPatient Instructions1. Get labs today2. Start prilsec 40 mg daily3. See pediatric surgeon regarding gallbladder after scope if everything isnegative4. schedule EGD- they will call you to schedule5. Follow up after scope Normal [facility] Vital Signs Date Time Vital Sign Value Performing Clinician Facility 08-27-2024 10:36-0400 Body height 170.18 [facility], [facility] 08-27-2024 10:36-0400 Body mass index (BMI) [Ratio] 20.83 kg/m2 [facility].; [facility], [facility]. 08-27-2024 10:36-0400 Body surface area Derived from formula 1.7 m2 Val [facility], [facility].; [facility], [facility] 08-27-2024 10:36-0400 Body weight 60.33 kg Val [facility].; [facility], [facility]. 08-27-2024 10:36-0400 Diastolic blood pressure 65 mm[Hg] Val N [facility].; [place] [employer] [facility], [facility]. Comment on above: Patient Position: Sitting; Cuff Location : Left Arm; Cuff Size: Standard 08-27-2024 10:36-0400 Heart rate 90 /min Val N [facility], [facility].; [employer] Comment on above: Pattern: Regular 08-27-2024 10:36-0400 Systolic blood pressure 98 mm[Hg] Val Mark Anthony [facility], [facility].; [facility], [facility]. Comment on above: Patient Position: Sitting; Cuff Location : Left Arm; Cuff Size: Standard 01-12-2023 09:50-0500 Body height 170.18 cm Aye Otero MA [facility], [facility].; [facility], [facility]. 01-12-2023 09:50-0500 Body mass index (BMI) [Ratio] 20.69 kg/m2 Aye Otero MA [facility], [facility].; [place] [employer] [facility], [facility]. 01-12-2023 09:50-0500 Body surface area Derived from formula 1.7 m2 Aye Otero MA [facility], [facility].; [place] [employer] [facility], [facility]. 01-12-2023 09:50-0500 Body temperature 97.6 [degF] Aye Otero MA [facility], [facility].; [place] [employer] [facility], [facility]. 01-12-2023 09:50-0500 Body weight 59.93 kg Aye Otero MA [facility], [facility].; [place] [employer] [facility], [facility]. 01-12-2023 09:50-0500 Diastolic blood pressure 80 mm[Hg] Aye Otero MA [facility], [facility].; [employer], [employer] Comment on above: Patient Position: Sitting; Cuff Location : Left Arm; Cuff Size: Standard 01-12-2023 09:50-0500 Heart rate 75 /min Aye Otero [facility].; [employer] Comment on above: Pattern: Regular 01-12-2023 09:50-0500 Systolic blood pressure 115 mm[Hg] Aye [facility]tero [facility].; [facility]. Comment on above: Patient Position: Sitting; Cuff Location : Left Arm; Cuff Size: Standard 05-17-2022 11:16-0400 Body height 170.18 cm Shanita Ulloa [facility].; [facility]. 05-17-2022 11:16-0400 Body mass index (BMI) [Ratio] 22.24 kg/m2 Shanita Ulloa [facility].; [facility]. 05-17-2022 11:16-0400 Body surface area Derived from formula 1.75 m2 Shanita Ulloa [facility].; [facility]. 05-17-2022 11:16-0400 Body weight 64.41 kg Shanita Ulloa [facility].; [place] [employer] [facility]. 05-17-2022 11:16-0400 Diastolic blood pressure 72 mm[Hg] Shanita Ulloa MA [facility].; [place] [employer] [facility] Center[facility]. Comment on above: Patient Position: Sitting; Cuff Location : Left Arm; Cuff Size: Standard 05-17-2022 11:16-0400 Heart rate 86 /min Shanita Ulloa [facility].; [employer] Comment on above: Pattern: Regular 05-17-2022 11:16-0400 Systolic blood pressure 108 mm[Hg] Shanita Ulloa MA [facility].; [place] [employer]. Comment on above: Patient Position: Sitting; Cuff Location : Left Arm; Cuff Size: Standard 02-07-2022 10:27-0500 Body height 167.64 cm BARB DAY Work Phone: [facility] Work Phone: 02-07-2022 10:27-0500 Body mass index (BMI) [Ratio] 22.1 kg/m2 BARB DAY Work Phone: [facility] Work Phone: 02-07-2022 10:27-0500 Body weight 62.14 kg PA Kristin Nguyen PA Work Phone: [facility] Work Phone: 02-07-2022 10:27-0500 Diastolic blood pressure 66 mm[Hg] PA Kristin Nguyen PA Work Phone: [facility] Work Phone: 02-07-2022 10:27-0500 Heart rate 111 /min PA Kristin Nguyen PA Work Phone: [facility] Work Phone: 02-07-2022 10:27-0500 Respiratory rate 16 /min PA Kristin Nguyen PA Work Phone: [facility] Work Phone: 02-07-2022 10:27-0500 SaO2% (BldA) [Mass fraction] 97 % PA Kristin Nguyen PA Work Phone: [facility] Work Phone: 02-07-2022 10:27-0500 Systolic blood pressure 90 mm[Hg] PA Kristin Nguyen PA Work Phone: [facility] Work Phone: 01-17-2022 11:31-0500 Body height 167.64 cm Danii Cornejo LPN [facility], [facility]. 01-17-2022 11:31-0500 Body mass index (BMI) [Ratio] 22.11 kg/m2 Jesusita Stuckey DEPENDENCY CASE MANAGER [facility], [facility].; [employer] [facility] 01-17-2022 11:31-0500 Body surface area Derived from formula 1.7 m2 JesusitaAminah Cornejo LPN [facility] [employer] [facility], [facility] 01-17-2022 11:31-0500 Body temperature 98.3 [degF] JesusitaAminah Corneoj DEPENDENCY CASE MANAGER [facility] [employer] [facility], [facility]. Comment on above: Method: Tympanic 01-17-2022 11:31-0500 Body weight 62.14 kg Danii [facility]nejo [facility] [employer] [facility]. 01-17-2022 11:31-0500 Diastolic blood pressure 83 mm[Hg] Danii Cornejo DEPENDENCY CASE MANAGER [facility] [employer] Comment on above: Patient Position: Sitting; Cuff Location : Left Arm; Cuff Size: Large 01-17-2022 11:31-0500 Heart rate 99 /min Danii Cornejo [facility] [employer], [employer] Comment on above: Pattern: Regular 01-17-2022 11:31-0500 Systolic blood pressure 128 mm[Hg] Danii Cornejo [facility] [employer] Comment on above: Patient Position: Sitting; Cuff Location : Left Arm; Cuff Size: Large 01-10-2022 10:54-0500 Body height 167.64 cm Silvia Inocente Fulton PA-C Work Phone: [facility], [facility].; [employer]. 01-10-2022 10:54-0500 Body mass index (BMI) [Ratio] 22.11 kg/m2 Silvia Inocente Fulton PA-C Work Phone: [facility], [facility].; [employer]. 01-10-2022 10:54-0500 Body surface area Derived from formula 1.7 m2 Silvia Inocente Fulton PA-C Work Phone: [facility], [employer]. 01-10-2022 10:54-0500 Body weight 62.14 kg Silvia Inocente Fulton PA-C Work Phone: [place] [employer] [facility], [employer] 01-10-2022 10:54-0500 Diastolic blood pressure 66 mm[Hg] Silvia J Fulton PA-C Work Phone: [facility], [employer]. Comment on above: Patient Position: Sitting; Cuff Location : Left Arm; Cuff Size: Standard 01-10-2022 10:54-0500 Heart rate 65 /min Silvia Brower Marvin PA-C Work Phone: [facility] [employer] Comment on above: Pattern: Regular 01-10-2022 10:54-0500 Systolic blood pressure 104 mm[Hg] Silvia Brower Fulton PA-C Work Phone: [facility] [employer].; [employer] Comment on above: Patient Position: Sitting; Cuff Location : Left Arm; Cuff Size: Standard 08-01-2021 14:43-0400 Body weight 60.78 kg Aye Otero MA [facility] [employer].; [place] [employer]. 08-01-2021 14:43-0400 Diastolic blood pressure 73 mm[Hg] Aye Otero MA [place] [employer].; [employer] Comment on above: Patient Position: Sitting; Cuff Location : Left Arm; Cuff Size: Standard 08-01-2021 14:43-0400 Heart rate 97 /min Aye Otero MA [employer] Comment on above: Pattern: Regular 08-01-2021 14:43-0400 Systolic blood pressure 108 mm[Hg] Aye Otero MA [place] [employer].; [employer]. Comment on above: Patient Position: Sitting; Cuff Location : Left Arm; Cuff Size: Standard 11-19-2019 14:01-0400 Body weight 61.69 kg Kristin Nguyen PA-C Work Phone: [employer].; [employer] 11-19-2019 14:01-0400 Diastolic blood pressure 77 mm[Hg] Kristin Nguyen PA-C Work Phone: [employer].; [employer] Comment on above: Patient Position: Sitting; Cuff Location : Left Arm; Cuff Size: Standard 11-19-2019 14:01-0400 Heart rate 72 /min Kristin Nguyen PA-C Work Phone: [employer].; [employer]. Comment on above: Pattern: Regular 11-19-2019 14:01-0400 Systolic blood pressure 110 mm[Hg] Kristin Nguyen PA-C Work Phone: [facility]; [employer] Comment on above: Patient Position: Sitting; Cuff Location : Left Arm; Cuff Size: Standard 09-22-2019 14:36-0400 Body height 170.18 cm Claudette Crisostomo [facility], [facility].; [employer] 09-22-2019 14:36-0400 Body mass index (BMI) [Percentile] Per age and sex 50 % Claudette [facility]ostomo [facility].; [place] [employer] [facility]. 09-22-2019 14:36-0400 Body mass index (BMI) [Ratio] 21.14 kg/m2 Claudette [facility].; [place] [employer] [facility]. 09-22-2019 14:36-0400 Body surface area Derived from formula 1.71 m2 Claudette Crisostomo [facility] [employer] [facility].; [employer] 09-22-2019 14:36-0400 Body weight 61.24 kg Claudette Teo Crisostomo [facility], [facility].; [employer]. 09-22-2019 14:36-0400 Diastolic blood pressure 71 mm[Hg] Claudette Crisostomo [facility] [employer] [facility].; [employer] Comment on above: Patient Position: Sitting; Cuff Location : Left Arm; Cuff Size: Standard 09-22-2019 14:36-0400 Heart rate 89 /min Claudetteheber Crisostomo DEPENDENCY CASE MANAGER [place] [employer] [facility].; [employer]. Comment on above: Pattern: Regular 09-22-2019 14:36-0400 Systolic blood pressure 114 mm[Hg] Claudette Teo Crisostomo DEPENDENCY CASE MANAGER [place] [employer] [facility].; [employer]. Comment on above: Patient Position: Sitting; Cuff Location : Left Arm; Cuff Size: Standard 07-16-2019 08:59-0400 Body height 168.28 cm Esmermary ann Ortiz LPN [facility], [facility].; [facility], [facility]. 07-16-2019 08:59-0400 Body mass index (BMI) [Percentile] Per age and sex 63 % Esmer Ortiz LPN [facility], [facility].; [place] [employer], [employer] 07-16-2019 08:59-0400 Body mass index (BMI) [Ratio] 22.27 kg/m2 Esmer Ortiz [facility], [facility].; [facility]. 07-16-2019 08:59-0400 Body surface area Derived from formula 1.72 m2 Esmer Sawyerbethanie [facility], [facility].; [facility], [facility]. 07-16-2019 08:59-0400 Body weight 63.05 kg Esmer Webethanie [facility], [facility].; [place] [employer], [employer] 03-18-2019 15:19-0500 Body temperature 98.8 [degF] Shanita George DEPENDENCY CASE MANAGER [facility].; [place] [employer]. Comment on above: Method: Tympanic 03-18-2019 15:19-0500 Body weight 61.69 kg Shanita George DEPENDENCY CASE MANAGER [facility], [facility].; [place] [employer], [employer] 03-18-2019 15:19-0500 Heart rate 90 /min Shanita George LPN [facility], [facility].; [employer] Comment on above: Pattern: Regular 03-18-2019 15:19-0500 Inhaled oxygen concentration 21 % Shanita George LPN [facility], [facility].; [place] [employer]. Comment on above: Room air 03-18-2019 15:19-0500 SaO2% (BldA) [Mass fraction] 98 % Shanita George LPN [facility], [facility].; [place] [employer]. 11-13-2018 13:47-0400 Body height 168.28 cm Kristin Nguyen PA-C Work Phone: [facility].; [place] [employer]. 11-13-2018 13:47-0400 Body mass index (BMI) [Percentile] Per age and sex 56 % Kristin Nguyen PA-C Work Phone: [employer]; [employer] 11-13-2018 13:47-0400 Body mass index (BMI) [Ratio] 21.3 kg/m2 Kristin Nguyen PA-C Work Phone: [employer]; [employer] 11-13-2018 13:47-0400 Body surface area Derived from formula 1.69 m2 Kristin Nguyen PA-C Work Phone: [employer]; [employer] 11-13-2018 13:47-0400 Body temperature 97.8 [degF] Kristin Nguyen PA-C Work Phone: [employer]; [employer] Comment on above: Method: Tympanic 11-13-2018 13:47-0400 Body weight 60.33 kg Kristin Nguyen PA-C Work Phone: [employer]; [employer] 11-13-2018 13:47-0400 Inhaled oxygen concentration 21 % Kristin DAY-Felix Work Phone: [employer]; [employer]. Comment on above: Room air 11-13-2018 13:47-0400 SaO2% (BldA) [Mass fraction] 98 % Kristin DAY-C Work Phone: [employer]; [employer]. 09-16-2018 09:31-0400 Body height 168.28 cm Esmer Ortiz LPN [employer] 09-16-2018 09:31-0400 Body mass index (BMI) [Percentile] Per age and sex 57 % Esmer Ortiz LPN [employer] 09-16-2018 09:31-0400 Body mass index (BMI) [Ratio] 21.3 kg/m2 Esmer Ortiz LPN [employer] [facility], [facility].; [employer] 09-16-2018 09:31-0400 Body surface area Derived from formula 1.69 m2 Esmermary ann Ortiz LPN [facility], Inc.; [employer] 09-16-2018 09:31-0400 Body weight 60.33 kg Esmer Diana HAAS [facility], Inc.; [employer] 09-16-2018 09:31-0400 Diastolic blood pressure 73 mm[Hg] Esmer Diana HAAS [place] [employer] [facility], Inc.; [employer] Comment on above: Patient Position: Sitting; Cuff Location : Left Arm; Cuff Size: Standard 09-16-2018 09:31-0400 Heart rate 66 /min Esmermary ann Ortiz LPN [facility], [facility].; [employer] Comment on above: Pattern: Regular 09-16-2018 09:31-0400 Systolic blood pressure 123 mm[Hg] Esmer Diana HAAS [place] [employer], [employer] Comment on above: Patient Position: Sitting; Cuff Location : Left Arm; Cuff Size: Standard 01-02-2018 10:06-0500 Body height 168.91 cm Esmermary ann Ortiz LPN [place] [employer] [facility], [facility].; [employer], [employer] 01-02-2018 10:06-0500 Body mass index (BMI) [Percentile] Per age and sex 57 % Esmer Ortiz LPN [place] [employer] [facility], [facility].; [employer] 01-02-2018 10:06-0500 Body mass index (BMI) [Ratio] 20.99 kg/m2 Esmer Ortiz LPN [place] [employer] 01-02-2018 10:06-0500 Body surface area Derived from formula 1.69 m2 Esmer Ortiz LPN [place] [employer] 01-02-2018 10:06-0500 Body temperature 97.6 [degF] Esmer Ortiz LPN [place] [employer]. Comment on above: Method: Tympanic 01-02-2018 10:06-0500 Body weight 59.88 kg Esmer Webethanie HAAS [employer]. 09-21-2017 14:09-0400 Body height 168.91 cm Kristin Nguyen PA-C Work Phone: [employer] 09-21-2017 14:09-0400 Body mass index (BMI) [Percentile] Per age and sex 71 % Kristin Nguyen PA-C Work Phone: [employer] 09-21-2017 14:09-0400 Body mass index (BMI) [Ratio] 22.26 kg/m2 Kristin Nguyen PA-C Work Phone: [employer] 09-21-2017 14:09-0400 Body surface area Derived from formula 1.73 m2 Kristin Nguyen PA-C Work Phone: [employer]. 09-21-2017 14:09-0400 Body weight 63.5 kg Kristin Nguyen PA-C Work Phone: [employer] 09-21-2017 14:09-0400 Diastolic blood pressure 63 mm[Hg] Kristin Nguyen PA-C Work Phone: [employer]. Comment on above: Patient Position: Sitting; Cuff Location : Left Arm; Cuff Size: Standard 09-21-2017 14:09-0400 Heart rate 78 /min Kristin Nguyen PA-C Work Phone: [employer]; [employer]. Comment on above: Pattern: Regular 09-21-2017 14:09-0400 Systolic blood pressure 112 mm[Hg] Kristin Nguyen PA-C Work Phone: [employer]; [facility] [employer] Comment on above: Patient Position: Sitting; Cuff Location : Left Arm; Cuff Size: Standard 01-24-2017 14:45-0500 Body height 166.37 cm Esmer Stephensedson HAAS [employer] [facility], Inc.; [employer] 01-24-2017 14:45-0500 Body mass index (BMI) [Percentile] Per age and sex 74 % Esmer Jacquesbethanie HAAS [employer] 01-24-2017 14:45-0500 Body mass index (BMI) [Ratio] 22.29 kg/m2 Emser Jacquesbethanie [facility] [employer], [employer] 01-24-2017 14:45-0500 Body surface area Derived from formula 1.69 m2 Esmer Jacquesbethanie HAAS [employer]. 01-24-2017 14:45-0500 Body weight 61.69 kg Esmer Jacquesbethanie HAAS [employer], [employer]. 01-24-2017 14:45-0500 Diastolic blood pressure 82 mm[Hg] Esmer Jacquesbethanie [facility], [employer]. Comment on above: Patient Position: Sitting; Cuff Location : Left Arm; Cuff Size: Standard 01-24-2017 14:45-0500 Heart rate 94 /min Esmer Jacquesbethanie HAAS [employer]. Comment on above: Pattern: Regular 01-24-2017 14:45-0500 Systolic blood pressure 132 mm[Hg] Esmer Jacquesbethanie HAAS [employer]. Comment on above: Patient Position: Sitting; Cuff Location : Left Arm; Cuff Size: Standard 10-27-2016 14:54-0400 Body temperature 97.6 [degF] Esmer Jacquesbethanie HAAS [employer]. Comment on above: Method: Tympanic 10-27-2016 14:54-0400 Body weight 60.33 kg Esmer Jacquesbethanie HAAS [employer] 09-18-2016 15:21-0400 Body height 165.1 cm Esmer Jacquesbethanie HAAS [place] [employer] [facility], [facility].; [employer] 09-18-2016 15:21-0400 Body mass index (BMI) [Percentile] Per age and sex 75 % Esmer Webethanie [facility] [employer], [facility].; [employer] 09-18-2016 15:21-0400 Body mass index (BMI) [Ratio] 22.13 kg/m2 Esmer Jacquesbethanie [facility] [employer] [facility], [facility].; [employer], [employer] 09-18-2016 15:21-0400 Body surface area Derived from formula 1.66 m2 Esmer Jacquesbethanie HAAS [place] [employer] [facility], [facility].; [employer], [employer] 09-18-2016 15:21-0400 Body weight 60.33 kg Esmer Webethanie DEPENDENCY CASE MANAGER [place] [employer] [facility], [facility].; [employer], [employer] 09-18-2016 15:21-0400 Diastolic blood pressure 74 mm[Hg] Esmer Jacquesbethanie [facility] [employer] [facility], [facility].; [employer]. Comment on above: Patient Position: Sitting; Cuff Location : Left Arm; Cuff Size: Standard 09-18-2016 15:21-0400 Heart rate 74 /min Esmer Webethanie HAAS [place] [employer] [facility], [facility].; [employer] Comment on above: Pattern: Regular 09-18-2016 15:21-0400 Systolic blood pressure 112 mm[Hg] Esmer Jacquesbethanie HAAS [place] [employer] [facility], [facility].; [employer]. Comment on above: Patient Position: Sitting; Cuff Location : Left Arm; Cuff Size: Standard 12-10-2015 10:38-0400 Body height 165.1 cm Esmer Webethanie HAAS [place] [employer] [facility], [facility].; [employer], [employer] 12-10-2015 10:38-0400 Body mass index (BMI) [Percentile] Per age and sex 84 % Esmer Webethanie HAAS [place] [employer] [facility], [facility].; [employer] 12-10-2015 10:38-0400 Body mass index (BMI) [Ratio] 23.13 kg/m2 Esmer Ortiz LPN [place] [employer] [facility], [facility].; [employer] 12-10-2015 10:38-0400 Body surface area Derived from formula 1.69 m2 Esmer Ortiz LPN [place] [employer] [facility], [facility].; [employer]. 12-10-2015 10:38-0400 Body weight 63.05 kg Esmer Ortiz [facility] [employer] [facility], [facility].; [employer]. 12-10-2015 10:38-0400 Diastolic blood pressure 78 mm[Hg] Esmer Ortiz [facility] [employer] [facility], [facility].; [employer], [employer] Comment on above: Patient Position: Sitting; Cuff Location : Left Arm; Cuff Size: Standard 12-10-2015 10:38-0400 Heart rate 50 /min Esmer Ortiz [facility] [employer] [facility], [facility].; [employer]. Comment on above: Pattern: Regular 12-10-2015 10:38-0400 Systolic blood pressure 132 mm[Hg] Esmermary ann Ortiz [facility] [employer] [facility], [facility]. Comment on above: Patient Position: Sitting; Cuff Location : Left Arm; Cuff Size: Standard 09-13-2015 15:05-0400 Body height 161.93 cm Johana Gibbs LPN [place] [employer] [facility], [facility].; [employer] 09-13-2015 15:05-0400 Body mass index (BMI) [Percentile] Per age and sex 89 % Johana Gibbs LPN [place] [employer] [facility], [facility].; [employer], [employer] 09-13-2015 15:05-0400 Body mass index (BMI) [Ratio] 24.05 kg/m2 Johana Gibbs LPN [place] [employer] [facility], [facility] [employer] 09-13-2015 15:05-0400 Body surface area Derived from formula 1.67 m2 Johana Gibbs LPN [place] [employer] [facility], [facility].; [employer]. 09-13-2015 15:05-0400 Body weight 63.05 kg Johana Gibbs SAMINA [employer] [facility], [facility].; [employer], [employer] 09-13-2015 15:05-0400 Diastolic blood pressure 75 mm[Hg] Johanakika Gibbs SAMINA [place] [employer] [facility], [facility].; [employer], [employer] Comment on above: Patient Position: Sitting; Cuff Location : Left Arm; Cuff Size: Standard 09-13-2015 15:05-0400 Heart rate 76 /min Johana Gibbs LPN [place] [employer] [facility], [facility] [employer] Comment on above: Pattern: Regular 09-13-2015 15:05-0400 Systolic blood pressure 122 mm[Hg] Johana E Sai HAAS [place] [employer] [facility], [facility] [employer], [employer] Comment on above: Patient Position: Sitting; Cuff Location : Left Arm; Cuff Size: Standard 03-05-2015 15:15-0500 Body temperature 99.3 [degF] Esmer Ortiz LPN [place] [employer] [facility], [facility] [employer], [employer] Comment on above: Method: Tympanic 03-05-2015 15:15-0500 Body weight 56.7 kg Esmer Ortiz LPN [place] [employer] [facility], [facility] [employer], [employer] 09-17-2014 10:20-0400 Body height 161.54 cm Esmer Ortiz LPN [place] [employer] [facility], [facility].; [employer], [employer] 09-17-2014 10:20-0400 Body mass index (BMI) [Percentile] Per age and sex 72 % Esmer Ortiz LPN [place] [employer] [facility], [facility].; [employer], [employer] 09-17-2014 10:20-0400 Body mass index (BMI) [Ratio] 20.36 kg/m2 Esmer Ortiz LPN [place] [employer], [employer] 09-17-2014 10:20-0400 Body surface area Derived from formula 1.55 m2 Esmer Ortiz LPN [place] [facility], [facility].; [employer] 09-17-2014 10:20-0400 Body weight 53.13 kg Esmer Ortiz LPN [place] [employer] [facility], [facility].; [employer]. 09-17-2014 10:20-0400 Diastolic blood pressure 78 mm[Hg] Esmer Diana HAAS [facility], [facility].; [facility], [facility]. Comment on above: Patient Position: Sitting; Cuff Location : Left Arm; Cuff Size: Standard 09-17-2014 10:20-0400 Heart rate 101 /min Esmer Ortiz LPN [facility], [facility].; [employer] [facility], [employer] Comment on above: Pattern: Regular 09-17-2014 10:20-0400 Systolic blood pressure 120 mm[Hg] Esmer Diana HAAS [facility], [facility].; [facility], [facility]. Comment on above: Patient Position: Sitting; Cuff Location : Left Arm; Cuff Size: Standard Encounters Encounter Date Encounter Type Care Provider Facility Start: 10-03-2024 End: 10-03-2024 ambulatory Kristin Nguyen PA Work Phone: -Physical Therapy Start: 10-03-2024 End: 10-03-2024 Discharged Recurring Kristin Nguyen PA -Physical Therapy Work Phone: Start: 09-16-2024 End: 09-16-2024 ambulatory Kristin Nguyen PA Work Phone: -MRI - [facility] Start: 09-16-2024 End: 09-16-2024 Patient encounter procedure Kristin Nguyen PA -MRI - [facility] Work Phone: Start: 09-16-2024 Registered Recurring Kristin Nguyen PA -Physical Therapy Work Phone: Start: 09-16-2024 End: 09-16-2024 ambulatory Kristin Nguyen PA Facility:[facility] Start: 08-28-2024 End: 08-28-2024 Orders Kristin Nguyen PA-C Work Phone: [facility], [facility]. Start: 08-27-2024 End: 08-27-2024 ambulatory Kristin Nguyen PA Work Phone: -Radiology [facility] Start: 08-27-2024 End: 08-27-2024 Patient encounter procedure Kristin Nguyen PA -Radiology [facility] Work Phone: Start: 08-27-2024 End: 08-27-2024 Office outpatient visit 15 minutes Kristin Nguyen PA-C Work Phone: [employer] Start: 08-27-2024 End: 08-27-2024 ambulatory Kristin Nguyen PA Facility:[facility] Start: 04-18-2024 Encounter for other preprocedural examination [facility] Start: 04-09-2024 End: 04-09-2024 ambulatory [facility] Facility:[facility] Start: 03-27-2024 ambulatory [facility] Facilit y:[facility] Start: 03-27-2024 End: 03-27-2024 ambulatory [facility] Facility:[facility] Start: 03-17-2024 End: 03-17-2024 ambulatory Kristin Nguyen PA [place] [place] Start: 01-12-2023 End: 01-12-2023 Medication Kristin Nguyen PA-C Work Phone: [employer], [employer] Start: 01-12-2023 End: 01-12-2023 ambulatory SILVIA PAC FULTON [facility] Start: 01-12-2023 End: 01-12-2023 Office outpatient visit 15 minutes Kristin Nguyen PA-C Work Phone: [employer], [employer] Start: 05-17-2022 End: 05-17-2022 Patient encounter procedure Kristin Nguyen PA-C Work Phone: [employer]. Start: 05-17-2022 End: 05-17-2022 Patient encounter status Kristin Nguyen PA-C Work Phone: [employer], [employer] Start: 02-07-2022 End: 02-07-2022 ambulatory PA Kristin Nguyen PA Work Phone: [facility] Work Phone: Start: 02-07-2022 End: 02-07-2022 Patient encounter procedure PA Kristin Nguyen PA Work Phone: [facility]-Laboratory, Specimen Start: 02-07-2022 End: 02-07-2022 Patient encounter procedure PA Kristin Nguyen PA Work Phone: [facility] Start: 01-31-2022 End: 01-31-2022 Orders Kristin Nguyen PA-C Work Phone: [employer]. Start: 01-30-2022 End: 01-30-2022 ambulatory PA Kristin Nguyen PA Work Phone: [facility] Work Phone: Start: 01-30-2022 End: 01-30-2022 Patient encounter procedure PA Kristin Ngueyn PA Work Phone: [facility]patient [facility] Ultrasound Start: 01-17-2022 End: 01-17-2022 Office outpatient visit 15 minutes Kristin Moodyer PA-C Work Phone: [employer]. Start: 01-10-2022 End: 01-10-2022 Patient encounter status Kristin Moodyer PA-C Work Phone: [employer]; [employer]. Start: 01-10-2022 End: 01-10-2022 Periodic preventive med est patient 18-39 yrs Kristin Moodyer PA-C Work Phone: [employer]. Start: 08-01-2021 End: 08-01-2021 Office outpatient visit 15 minutes Kristin Moodyer PA-C Work Phone: [employer]. Start: 11-19-2019 End: 11-19-2019 Patient encounter procedure Kristin Moodyer PA-C Work Phone: [employer]. Start: 09-30-2019 End: 09-30-2019 Nursing evaluation of patient and report Kristin Moodyer PA-C Work Phone: [employer]. Start: 09-30-2019 End: 09-30-2019 Patient encounter status Kristin Moodyer PA-C Work Phone: [employer] Start: 09-22-2019 End: 09-22-2019 Patient encounter status Kristin Nguyen PA-C Work Phone: [employer] Start: 09-22-2019 End: 09-22-2019 Periodic preventive med est patient 12-17yrs Kristin Nguyen PA-C Work Phone: [employer]. Start: 07-16-2019 End: 07-16-2019 Office outpatient visit 15 minutes Kristin Nguyen PA-C Work Phone: [employer]. Start: 03-18-2019 End: 03-18-2019 Office outpatient visit 15 minutes Kristin Nguyen PA-C Work Phone: [employer]. Start: 11-13-2018 End: 11-13-2018 Office outpatient visit 15 minutes Kristin Nguyen PA-C Work Phone: [employer]. Start: 09-16-2018 End: 09-16-2018 Patient encounter status Esmer Ortiz LPN [employer] Start: 09-16-2018 End: 09-16-2018 Periodic preventive med est patient 12-17yrs Kristin Nguyen PA-C Work Phone: [employer]. Start: 01-02-2018 End: 01-02-2018 Patient encounter procedure Kristin Nguyen PA-C Work Phone: [employer]. Start: 09-21-2017 End: 09-21-2017 Patient encounter status Jl Steele MD Work Phone: [employer] Start: 09-21-2017 End: 09-21-2017 Periodic preventive med est patient 12-17yrs Kristin Nguyen PA-C Work Phone: [employer]. Start: 05-21-2017 End: 05-22-2017 Evaluation and management of inpatient ALEXIA D [facility] Start: 04-20-2017 End: 04-20-2017 [facility] Start: 04-20-2017 End: 04-20-2017 Ambulatory BELÉN M [facility] Start: 03-21-2017 End: 03-21-2017 Ambulatory JIMMY ALLEN [facility] Start: 03-05-2017 End: 03-06-2017 Ambulatory BELÉN M [facility] Start: 03-05-2017 End: 03-05-2017 Ambulatory BELÉN M [facility] Start: 01-31-2017 End: 01-31-2017 Orders Kristin Nguyen PA-C Work Phone: [employer]. Start: 01-26-2017 End: 01-26-2017 Orders Kristin Nguyen PA-C Work Phone: [employer]. Start: 01-24-2017 End: 01-24-2017 Office outpatient visit 15 minutes Kristin Nguyen PA-C Work Phone: [employer]. Start: 10-27-2016 End: 11-01-2016 Office outpatient visit 15 minutes Kristin Nguyen PA-C Work Phone: [employer] Start: 09-18-2016 End: 09-18-2016 Patient encounter status Kristin Nguyen PA-C Work Phone: [employer] Start: 09-18-2016 End: 09-18-2016 Periodic preventive med est patient 12-17yrs Kristin Nguyen PA-C Work Phone: [employer]. Start: 12-10-2015 End: 12-10-2015 Patient encounter procedure Kristin Nguyen PA-C Work Phone: [employer]. Start: 09-13-2015 End: 09-14-2015 Patient encounter procedure Kristin Nguyen PA-C Work Phone: [employer] Start: 09-13-2015 End: 09-14-2015 Patient encounter status Kristin Nguyen PA-C Work Phone: [facility] [facility]. Start: 03-18-2015 End: 03-18-2015 Orders Kristin Nguyen PA-C Work Phone: [employer] [facility] Start: 03-09-2015 End: 03-09-2015 Orders Kristin DAY-C Work Phone: [employer] [facility] Start: 03-05-2015 End: 03-05-2015 Patient encounter procedure Kristin MORELOSC Work Phone: [employer] [facility]. Start: 09-17-2014 End: 09-17-2014 Patient encounter procedure Kristin DAY-C Work Phone: [employer] [facility] Start: 09-17-2014 End: 09-17-2014 Patient encounter status Kristin MORELOSC Work Phone: [employer] [facility].; [employer]. Patient encounter status Esmer Ortiz LPN [facility]. Patient encounter status Esmer Ortiz LPN [facility].; [facility]. Procedures Date Procedure Procedure Detail Performing Clinician Start: 09-16-2024 MRI of lumbar spine Elisa hanley Patrick DAY Work Phone: Start: 08-28-2024 End: 09-17-2024 Mri spinal canal lumbar w/o contrast material Kristin Moodyer PA-C Work Phone: Start: 08-27-2024 End: 08-28-2024 Radex spine lumbosacral 2/3 views Kristin Brower Nguyen PA-C Work Phone: Start: 08-27-2024 X-ray of lumbosacral spine Kristin Nguyen PA Work Phone: Start: 01-12-2023 End: 01-12-2023 Radex hand minimum 3 views Silvia J Fulton PA-C Work Phone: Start: 01-30-2022 Ultrasonography of breast PA Kristin Nguyen PA Work Phone: Start: 01-10-2022 End: 01-10-2022 Depression screening Silvia Brower Fulton PA-C Work Phone: Start: 01-10-2022 End: 01-10-2022 Scr dep neg, no plan reqd Silvia Brower Fulton PA-C Work Phone: Start: 01-10-2022 End: 01-31-2022 Us breast uni real time with image limited Silvia Brower Fulton PA-C Work Phone: Start: 08-01-2021 End: 08-03-2021 Radiologic exam abdomen 3+ views Kristin Moodyer PA-C Work Phone: Start: 09-22-2019 End: 09-22-2019 Screening test visual acuity quantitative bilat Kristin Brower Nguyen PA-C Work Phone: Start: 11-13-2018 End: 11-14-2018 Us abdominal real time w/image documentation Kristin Brower Nguyen PA-C Work Phone: Comment on above: Left side; wanting t o look at spleen so not sure if can just do modified version with the pelvic US. Start: 11-13-2018 End: 11-13-2018 Radiologic exam chest 2 views Kristin Moodyer PA-C Work Phone: Start: 09-16-2018 End: 09-16-2018 Screening test visual acuity quantitative bilat Kristin Brower Nguyen PA-C Work Phone: Start: 09-21-2017 End: 09-21-2017 Screening test visual acuity quantitative bilat Jl Steele MD Work Phone: Start: 04-26-2017 End: 04-26-2017 Cholecystectomy Aye Otero MA Comment on above: Dyskinetic GB Start: 01-26-2017 End: 01-29-2017 Us abdominal real time w/image limited Kristin Moodyer PA-C Work Phone: Start: 01-24-2017 End: 01-31-2017 Hepatobiliary syst imaging including gallbladder Kristin DAY-C Work Phone: Start: 01-24-2017 End: 01-24-2017 Body mass index documented Kristin DAY-C Work Phone: Start: 10-27-2016 End: 11-03-2016 Ct abdomen & pelvis w/contrast material Kristin DAY-C Work Phone: Start: 09-18-2016 End: 09-18-2016 Screening test visual acuity quantitative bilat Kristin Nguyen PA-C Work Phone: Start: 09-13-2015 End: 09-13-2015 Screening test visual acuity quantitative bilat Jimmy Allen MD Work Phone: Start: 03-09-2015 End: 03-18-2015 Mri any jt lower extrem w/o contrast matrl Kristin DAY-C Work Phone: Start: 03-05-2015 End: 03-08-2015 Radiologic exam knee complete 4/more views Kristin DAY-C Work Phone: Start: 09-17-2014 End: 09-17-2014 Screening test visual acuity quantitative bilat Kristin Nguyen PA-C Work Phone: H/O: surgery S/P excision of fibroadenoma of breast Kristin Nguyen BARB Work Phone: 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 Start: 08-27-2024 Radex spine lumbosac ral 2/3 views Lumbo Sacral Complete (88639) Start: 27-Aug-2024 Intent [employer] Start: 01-31-2022 Fine needle aspirati on bx w/us gdn 1st lesion [employer] Immunizations Immunization Date Immunization Notes Care Provider Owen ramos 09-30-2019 Meningococcal, MCV4, unspecified conjugate formulation(groups A, C, Y and W-135) Kristin DAY-Felix Work Phone: [facility]; [facility] 09-30-2019 meningococcal oligosaccharide (groups A, C, Y and W-135) diphtheria toxoid conjugate vaccine (MCV4O) Kristin Nguyen PA-C Work Phone: [facility]; [facility] [employer] Comment on above: Site: Left DeltoidVI S Given: * MenACWY (10/19/17) 09-22-2019 Counseled parent on risks/benefits of vaccines (65948) Kristin Nguyen PA-C Work Phone: [facility] [employer]; [facility] [facility] 09-21-2017 Counseled parent on risks/benefits of vaccines (71960) Kristin Nguyen PA-C Work Phone: [employer]; [facility] [facility] 09-17-2014 tetanus toxoid, redu marva diphtheria toxoid, and acellular pertussis vaccine, adsorbed Kristin DAY-Felix Work Phone: [facility] [employer]; [employer] Comment on above: Site: Deltoid (Right )VIS Given: * Tdap (Tetanus, Diphtheria, Pertussis) (04/21/14) 09-17-2014 varicella virus vaccine Ethelalan DAY-Felix Work Phone: [facility] [employer]; [employer] Comment on above: Site: Deltoid Area ( Right)VIS Given: * Varicella (Chickenpox) (05/09/07) 06-13-2007 measles, mumps and rubella virus vaccine Kristin Nguyen PA-C Work Phone: [employer]; [employer] 03-28-2007 diphtheria, tetanus toxoids and acellular pertussis vaccine Kristin Nguyen PA-Felix Work Phone: [employer] [facility] 03-28-2007 hepatitis B vaccine, pediatric or pediatric/adolescent dosage Kristin Nguyen PA-C Work Phone: [facility] 03-28-2007 poliovirus vaccine, inactivated Kristin Nguyen PA-C Work Phone: [facility] 02-08-2006 varicella virus vaccine Ethel ssa Nguyen PA-C Work Phone: [facility].; [facility] 04-10-2003 diphtheria, tetanus toxoids and acellular pertussis vaccine Kristin Nguyen PA-C Work Phone: [facility].; [facility] 04-10-2003 haemophilus influenz ae type b vaccine, PRP-T conjugate Kristin Nguyen PA-C Work Phone: [facility].; [facility] 04-10-2003 hepatitis B vaccine, pediatric or pediatric/adolescent dosage Kristin Nguyen PA-C Work Phone: [facility] 01-02-2003 measles, mumps and rubella virus vaccine Kristin Nguyen PA-C Work Phone: [facility] 07-25-2002 diphtheria, tetanus toxoids and acellular pertussis vaccine Kristin Nguyen PA-C Work Phone: [facility].; [facility] 07-25-2002 haemophilus influenz ae type b vaccine, PRP-T conjugate Kristin Nguyen PA-C Work Phone: [facility] 07-25-2002 poliovirus vaccine, inactivated Kristin Nguyen PA-C Work Phone: [facility] 05-23-2002 diphtheria, tetanus toxoids and acellular pertussis vaccine Kristin Nguyen PA-C Work Phone: [facility] 05-23-2002 haemophilus influenz ae type b vaccine, PRP-T conjugate Kristin Nguyen PA-C Work Phone: [facility] 05-23-2002 hepatitis B vaccine, pediatric or pediatric/adolescent dosage Kristin Nguyen PA-C Work Phone: [facility].; [facility] 05-23-2002 poliovirus vaccine, inactivated Kristin Nguyen PA-C Work Phone: [facility] 02-24-2002 diphtheria, tetanus toxoids and acellular pertussis vaccine Kristin Nguyen PA-C Work Phone: [facility] 02-24-2002 haemophilus influenz ae type b vaccine, PRP-T conjugate Kristin Nguyen PA-C Work Phone: [facility] 02-24-2002 hepatitis B vaccine, pediatric or pediatric/adolescent dosage Kristin Nguyen PA-C Work Phone: [facility] 02-24-2002 poliovirus vaccine, inactivated Kristin Nguyen PA-C Work Phone: [facility].; [facility] Payers Date Payer Category Payer Self-pay 2024 Unknown [id number] 2000 Unknown [id number] Private Health Insurance [id number] Private Health Insurance [id number] Private Health Insurance [id number] Unknown [facility] Unknown [id number] Unknown [id number] Unknown [id number] Unknown [id number] Unknown [id number] Unknown [id number] Unknown [id number] Social History Date Type Detail Facility Tobacco smoking stat [facility] Unknown if ever smoked [facility] Work Phone: Start: 2000 Sex Assigned At Female [facility] [employer] Tobacco Use: Tobacco Use: ; N ever smoker. [facility].; [facility], [employer] Start: 04-01-2024 Never smoked tobacco [facility] Medical Equipment Procedure Code Equipment Code Equipment Origin al Text Equipment Identifier Dates Excisional biopsy of mass of breast with needle localization Ligation clip, metallic [id number] FDA Start: 03-27-2024 Excisional biopsy of mass of breast with needle localization Ligation clip, metallic [id number] FDA Start: 03-27-2024 Discharge summary 10-03-2024 Note Date & Type Note Facility 10-03-2024 Discharge summary [facility] Discharge summary 10-03-2024 Note Date & Type Note Facility 10-03-2024 Discharge summary Note Date/Time October 03, 2024 10:13am [facility] Physical Therapy [facility] [address] [place] [address] [address] [place] [address] / REHABILITATION SERVICES DISCHARGE SUMMARY MR#: [id number] Acct: [id number] Name: MARY ANN REID Rep #: [id number] : 2000 23 From: Demario Lockhart Referring Dr.: BARB Timmons Status: REG RCR Insurance: [employer] [employer] SELF PAY INSURANCE Discharge Summary D/C summary: It has been my pleasure to treat MARY ANN REID referred by BARB Timmons, with the diagnosis of L sided lumbar radiculopathy for a total of 5 visit(s). Discharge Date: 10/03/24 Please see the following information for a summary of their discharge status. Subjective Subjective: Pt. reports being ~50% better. She has not had a spasm since starting. Pt. did have an MRI, showing a small disc extrusion. Pt. reports having some L anterior leg pain. Pt. reports no leg weakness. Pain L side of lumbar spine: Pain Intensity (Out of 10): 2 Overall Improvement % Improvement: 50 Objective Objective/Function: ROM: LUMBAR SPINE flexion nil loss NE, ext min loss increaseNW, SB min loss NE, rotation min loss NE. Pt. has slight tightness in B HS as well. MMT: No myotomal weakness noted. GAIT: Pt. has fairly normal gait pattern. Pt. does not have a marked lateral shift, posture is overall pretty good. Pt. does reports overall doing better, but still has a underlying pain that never really goes away. Goals Goal 1:: LTG: Pt. to be I with HEP. Goal Progress: Goal Met Goal 2:: STG: Pt. to have full ROM lumbar spine without increase in symptoms. Goal Progress: Progressing Goal 3:: STG: Pt. to no radicular symptoms in LLE. Goal Progress: Progressing Goal 4:: LTG: Pt. to complete all work related activities without increase in symptoms. Goal Progress: Progressing Goal 5:: LTG: pt. to have 5/5 B hip and core strength. Goal Progress: Goal Met Plan Plan: Pt. is overall doing better. She has a good idea of her exercises. She is going to go on vacation and do her exercises. If not improving she will look at possibly seeing a spinal specialist. D/C Information d/c sentence: If there are questions or concerns regarding this patient's physical therapy, please feel free to call me at [phone]. Thank you for the referral of thispatient. Sincerely, Demario Oconnor, DPT Balance/Gait/Functional tests Balance/Special Test Scores Oswestry Low Back Score: 9 Improvement % Improvement: 50 <Electronically signed by Demario Oconnor DPT> 10/03/24 0929 CC: BARB Timmons ~ CLS Signed [facility] Work Phone: Radiology Diagnostic study note 08-27-2024 Note Date & Type Note Facility 08-27-2024 Radiology Diagnostic study note [facility] Imaging Services [address] [place], [place] [id number] L/S Spine Min 4 Views MR#: [id number] Acct: [id number] Name: MARY ANN REID Rep #: [id number] : 2000 F 23 From: Papa Norton MD PCP: BARB Timmons Status: REG CLI Study:L/S Spine Min 4 Views Date of Exam: 08/27/24 Exam# [id number] Ordering Dr: Teo Nguyen PROCEDURE: L/S SPINE MIN 4 VIEWS 08/27/2024 REASON FOR EXAM: LOW BACK PAIN W/RADICULOPATHY TECHNIQUE: Four view lumbar spine series including bilateral oblique views COMPARISON: None. RAD/L/S Spine Min 4 Views IMPRESSION: Surgical clips are seen over the medial right abdomen. No evidence of spondylolysis or spondylolisthesis. Sacroiliac joints appear symmetric and within the normal range. No significant degenerative change or disc narrowing is noted. No fracture is seen. Negative examination. Reading Location: [place] [address] CC: BARB Timmons ~ Php Architect: Signed [facility] Clinical Note 03-27-2024 Note Date & Type Note Facility 03-27-2024 Note [facility] Medical Records Department [address] [place] [address] History Physical Exam 03/27/24 1005 MR#: [id number] Acct: [id number] Name: MARY ANN REID Rep #: [id number] : 2000 23 From: Cinthia Ruiz MD PCP: BARB Timmons Status:[facility] Location: [place] [address] History and Physical Date of Admission: 03/27/24 Date of Service: 03/17/24 MR#: [id number] Acct: [id number] Name: MARY ANN REID Rep #: [id number] : 2000 Provider: Dr. Cinthia Ruiz MD Age/Sex: 23/F Location: [facility] Status: Signed Intake Vital Signs 01/08/2317:25 03/17/2510:19 Height 5 ft 6 in 5 ft 6 in Weight: 134 lb 4 oz BMI 21.7 BP 125/80 H Blood Pressure Location Lt brachial Position Sitting Respiration 18 Pulse 68 Pulse Source Monitor Temp 97.2 F L Temp Source Temporal Pulse Oximetry (%) 98 Oxygen Delivery Method room air Intake Visit Reasons: EXCISION OF R BREAST MASS Chief Complaint: excision of r breast mass Accompanied by: Mother Is patient in pain?: No Allergies sulfamethoxazole (From Bactrim) Allergy (Verified 03/17/24 11:22) Hivestrimethoprim (From Bactrim) Allergy (Verified 03/17/24 11:22) Hives Medications ???Medication ???Instructions ???Recorded ???Confirmed ???Type NK 03/17/24 03/17/24 History PFSH Medical History (Updated 03/17/24 @ 11:[address] Cinthia Ruiz MD) Lump of right breast Acute streptococcal pharyngitis Acute pharyngitis, unspecified Acute frontal sinusitis, unspecified Surgical History S/P laparoscopic cholecystectomy Family History Grandfather Diabetes Heart disease Hypertension Cancer skin Kidney diseaseGrandmother Heart diseaseMother CAD (coronary artery disease)Aunt Cancer uterine Social History (Updated 03/17/24 @ 11:18 by Ann Marie Jarrett LPN) Smoking Status: Never smoker alcohol intake: never substance use type: does not use HPI HPI HPI: 23-year-old female presents due to enlarging right breast fibroadenoma. Patient had this biopsied in January 2022 along with the left breast which was both fibroadenomas. However the right breast has grown in size about 3x the size previous. Patient states about the size of a golf ball. This can cause discomfort if her breast from work is pressing on this area. ROS General General: No weight change, appetite, fatigue, colon cancer, breast cancer or weakness HEENT HEENT: No difficulty swallowing, eye injury, eye surgery, swollen glands or hoarseness Endo Endocrine: No thyroid disease, diabetes mellitus, thyroid cancer, Hair loss, heat intolerance or cold intolerance Skin Skin: No rash or changing moles Breast Breast: Yes right breast lump; No left breast lump, nipple discharge, breast pain, abnormal mammogram, abnormal US or breast enlargement Musc Musculoskeletal: No back problems, arthritis, rheumatoid arthritis, gout or joint pain Cardio Cardiovascular: No murmur, pacemaker, heart disease, atrial fibrillation, high blood pressure, heart attack, heart stent, palpitations, shortness of breat with exertion or chest pain Psych Psychiatric: No depression, anxiety or hearing voices Resp Respiratory: No shortness of breath, No sleep apnea, No cough, No COPD, No asthma, No emphysema and No wheezing Gastro Gastrointestinal: No abdominal pain, No nausea or vomiting, No diarrhea, No constipation, No blood in stool, No acid reflux, No hemorrhoids, No ulcers, No gallbladder problem and No black,tarry stools Albert Hematologic: No blood thinners, No blood disorders, No bleeding, No anemia and No blood clots Neuro Neurologic: No numbness, No tingling and No weakness Exam Const General: cooperative, healthy appearing and no acute distress [facility] Head: normal to inspection Chest Other: Breast inspection: Symmetric bilaterally, can faintly see right breast enlarging mass at 4:00 when laying down Right breast: Fibroglandular tissue, 8 cm x 7 cm mass at 4:00 previously biopsied and was a fibroadenoma question whether this is a phyllodes with the growth, no nipple discharge or pain, no change in overlying skin Left breast: Fibroglandular tissue, 2 x 2.5 cm mass at 4:00 2 cm previously biopsied as well???fibroadenoma, no nipple discharge or pain, no change in overlying skin No axillary or supraclavicular adenopathy bilaterally Resp Effort Inspection: normal respiratory effort Cardio Rate: regular rate GI Inspection: non-distended Palpation: soft Skin General: no rashes or lesio (more content not included)... [facility] Evaluation note Note Date & Type Note Facility Evaluation note Diagnosis Onset Date Masses of both breasts acute [facility] Work Phone: Evaluation note Note Date & Type Note Facility Evaluation note No assessment information availa ble [facility] Work Phone: Reason for referral (narrative) Note Date & Type Note Facility Reason for referral (narrative) No reason for referral information available [facility] Work Phone: Summary Purpose Family History No Family History Records Found Relationship Condition Age at Onset Recorded Date/T júnior grandfather Diabetes mellitus Unknown Cardiac disease Unknown Hypertension Unknown Malignant neoplasm Unknown Kidney disorder Unknown grandmother Cardiac disease Unknown mother Coronary artery disease Unknown aunt Malignant neoplasm Unknown Advance Directives No Advanced Directives Records FoundNo Advanced Directives Records FoundNo Advanced Directives Records FoundNo Advanced Directives Records Found Chief Complaint and Reason for Visit Chief Complaint PALPABLE LUMP RT & L T BREASTS BIRADS 4 BOTH BREAST LIKELY B/L FIRBROADENOMA Reason for Visit Masses of both breas ts Chief Complaint Admit Date XRAY August 27, 2024 12:16 pm Chief Complaint Admit Date XRAY August 27, 2024 12:16 pm BACK PAIN. RX HERE September 16, 2024 9:30 am low back pain potentially associated wit h radiculo September 16, 2024 10:59am Chief Complaint Admit Date XRAY August 27, 2024 12:16 pm low back pain potentially associated wit h radiculo September 16, 2024 10:59am BACK PAIN. RX HERE October 03, 2024 9:0 0am Additional Source Comments INFORMATION SOURCE (unrecogn ized section and content) DATE CREATED AUTHOR 08/16/2017 [facility] DATE CREATED AUTHOR AUTHOR'S ORGANIZ ATION 07/17/2019 [facility] DATE CREATED AUTHOR AUTHOR'S ORGANIZ ATION 02/01/2023 [facility] DATE CREATED AUTHOR AUTHOR'S ORGANIZ ATION 10/05/2024 [facility] Goals (unrecognized section and content) Goals may be documented in a n alternate sectionGoals may be documented in an alternate sectionGoals may be documented in an alternate sectionGoals may be documented in an alternate sectionGoals may be documented in an alternate section Care Teams (unrecognized sec tion and content) Team Status: Active Member Role/Relationship Status Dates Kristin Nguyen PA, PA Primary Care Provider Active Team Status: Inactive Member Role/Relationship Status Dates Kristin Nguyen PA, PA Primary Care Provider Active Start: August 27, 2024 End: August 27, 2024 Kristin Ngueyn PA, PA Attending Provider Active Start: August 27, 2024 End: August 27, 2024 Kristin Nguyen PA, PA Referring Provider Active Start: August 27, 2024 End: August 27, 2024 Team Status: Active Member Role/Relationship Status Dates Kristin Nguyen PA, PA Primary Care Provider Active Start: September 16, 2024 Kristin Nguyen PA, PA Attending Provider Active Start: September 16, 2024 Kristin Nguyen PA, PA Referring Provider Active Start: September 16, 2024 Team Status: Inactive Member Role/Relationship Status Dates Kristin Nguyen PA, PA Primary Care Provider Active Start: September 16, 2024 End: September 16, 2024 Kristin Nguyen PA, PA Attending Provider Active Start: September 16, 2024 End: September 16, 2024 Kristin Nguyen PA, PA Referring Provider Active Start: September 16, 2024 End: September 16, 2024 Team Status: Inactive Member Role/Relationship Status Dates Kristin Nguyen PA, PA Primary Care Provider Active Start: September 16, 2024 End: September 16, 2024 Kristin Nguyen PA, PA Attending Provider Active Start: September 16, 2024 End: September 16, 2024 Kristin Nguyen PA, PA Referring Provider Active Start: September 16, 2024 End: September 16, 2024 Team Status: Inactive Member Role/Relationship Status Dates Kristin Nguyen PA, PA Primary Care Provider Active Start: October 03, 2024 End: October 03, 2024 Kristin Nguyen PA, PA Attending Provider Active Start: October 03, 2024 End: October 03, 2024 Kristin Nguyen PA, PA Referring Provider Active Start: October 03, 2024 End: October 03, 2024 FOR RECORDS PERTAINING TO PATIENTS WHO ARE OR HAVE BEEN ENROLLED IN A CHEMICAL DEPENDENCY/SUBSTANCEABUSE PROGRAM, SOME INFORMATION MAY BE OMITTED. This clinical summary was aggregated from multiple sources. Caution should be exercised in using it in the provision of clinical care. This summary normalizes information from multiple sources, and as a consequence, information in this document may materially change the coding, format and clinical context of patient data. In addition, data may be omitted in some cases. CLINICAL DECISIONS SHOULD BE BASED ON THE PRIMARY CLINICAL RECORDS. [facility]. provides no warranty or guarantee of the accuracy or completeness of information in this document.
== END | disposition home or self-care (01) ==
LOC: LABSPEC 01-19 11:02
PROVIDERS: PCP Physician Assistant; Visit Provider Nurse Practitioner Family
DX: R30.0 Dysuria (principal)
CPT/HCPCS: 87086; 87088